=== PATIENT | male | born 1940 | race Caucasian/White ===

== ENCOUNTER 2022-12-16 16:29 | Inpatient (IN) | payer MEDICARE ==
[2022-12-16] MEDS ORDERED: ACETAMINOPHEN TAB 500 MG TAB PO STA (16:42)
[2022-12-16] MEDS ORDERED: SODIUM CHLORIDE 0.9% 1,000 ML IV STA (16:44)
--- NOTE | 2022-12-16 17:06 | ED ---
General Adult HPI - General Chief complaint: Back Pain/Injury Stated complaint: Kidney stones Time Seen by Provider: 12/16/22 16:39 Source: patient, EMS Mode of arrival: EMS Limitations: no limitations - History of Present Illness Initial comments: Dictation was produced using [employer]mob dictation software. please excuse any grammatical, word or spelling errors. Chief Complaint: 82-year-old male presents emergency department for intractable kidney stone pain History of Present Illness: Patient is an 82-year-old male who is transferred via EMS from [facility]. Patient apparently presented there for days ago for kidney stone pain. Patient is a poor historian. Suspect that he has a history of dementia. According to transferring physician patient presented therefore days ago for kidney stone. He was found to have a 8 mm left mid ureteral stone. He is discharged. They suspected he also had associated urinary tract infection. 3 presented to either emergency room today for the same complaint. Is not feeling like he is getting any better he was transferred here. Patient states that he has pain in the right abdomen. Patient states he is cold and can't get warm. The ROS documented in this emergency department record has been reviewed and confirmed by me. Those systems with pertinent positive or negative responses have been documented in the HPI. All other systems are other negative and/or noncontributory. - Related Data Allergies Allergy/AdvReac Type Severity Reaction Status Date / Time No Known Allergies Allergy Verified 12/16/22 16:41 Review of Systems ROS Statement: Those systems with pertinent positive or pertinent negative responses have been documented in the HPI. ROS Other: All systems not noted in ROS Statement are negative. Past Medical History History of Any Multi-Drug Resistant Organisms: None Reported Past Psychological History: No Psychological Hx Reported Smoking Status: Never smoker Past Alcohol Use History: Rare Past Drug Use History: None Reported General Exam - General Exam Comments Initial Comments: PHYSICAL EXAM: General Impression: Alert and oriented x3, not in acute distress HEENT: Normocephalic atraumatic, extra-ocular movements intact, pupils equal and reactive to light bilaterally, mucous membranes moist. Cardiovascular: Heart regular rate and rhythm Chest: Able to complete full sentences, no retractions, no tachypnea Abdomen: abdomen soft, non-tender, non-distended, no organomegaly Musculoskeletal: Pulses present and equal in all extremities, no peripheral edema Motor: no focal deficits noted Neurological: CN II-XII grossly intact, no focal motor or sensory deficits noted Skin: Intact with no visualized rashes Psych: Normal affect and mood Limitations: no limitations Course Vital Signs 12/16/22 12/16/22 16:38 16:44 Temperature 101.7 F H 101.7 F H Pulse Rate 115 H 109 H Respiratory 20 18 Rate Blood Pressure 166/87 166/87 O2 Sat by Pulse 91 L 92 L Oximetry - Reevaluation(s) Reevaluation #1: 12/16/22 17:[address] radiology reviewed shows that patient had 8 mm midureteral stone with moderate hydronephrosis. Urinalysis from transferring physician. Labs revealed showing elevated leukocytosis of 9.5. Rest of CBC within acceptable limits. Urinalysis is negative for urinary tract infection. Chemistry panel shows sodium 1:30, BUN 27 and creatinine 1.9 EKG Findings - EKG Comments: EKG Findings:: My EKG interpretation: Ventricular rate 92, sinus rhythm,. Interval to 22, QRS 106, QTC 408. No [place] prolongation, no QTC prolongation, no ST or T-wave changes noted. . Overall, this EKG is unremarkable Procedures - Sepsis Sepsis Focused Exam #1 Time Sepsis Criteria Met: 18:55 Sepsis Focused Exam Date: 12/16/22 Sepsis Focused Exam Time: 18:55 Sepsis Focused Exam Complete: Yes Vital Signs & RN Notes Reviewed: Yes Capillary Refill: < 2 Seconds: Fingers, Toes Peripheral Pulses: Normal: Radial (R), Radial (L), Posterior Tibialis (R), Posterior Tibialis (L), Dorsalis Pedis (R), Dorsalis Pedis (L) Skin Color: Normal for Patient Respiratory Exam: normal lung sounds Cardiovascular Exam: tachycardia Medical Decision Making - Medical Decision Making Was pt. sent in by a medical professional or institution (, PA, SNAPPER ON, urgent care, hospital, or correction...) When possible be specific @ -See above Did you speak to anyone other than the patient for history (EMS, parent, family, police, friend...)? What history was obtained from this source @ -See above Did you review nursing and triage notes (agree or disagree)? Why? @ -I reviewed and agree with nursing and triage notes Were old charts reviewed (outside hosp., previous admission, EMS record, old EKG, old radiological studies, urgent care reports/EKG's, correction records)? Report findings @ -No old charts were reviewed Differential Diagnosis (chest pain, altered mental status, abdominal pain women, abdominal pain men, vaginal bleeding, musculoskeletal, weakness, fever, dyspnea, syncope, headache, dizziness, GI bleed, back pain, seizure, CVA, palpatations, mental health)? @ -Differential Fever: Pneumonia, viral URI, endocarditis, myocarditis, pericarditis, otitis, sinusitis, peritonsillar Abscess, retropharyngeal Abscess, epiglottitis, peritonitis, appendicitis, Lilia cystitis, diverticulitis, hepatitis, colitis, UTI, PID, TOA, pyelonephritis, prostatitis, epididymitis, meningitis, encephalitis, pulmonary embolism, CVA, thyroid storm, pancreatitis, adrenal crisis, cavernous sinus thrombosis, this is not meant to be an all-inclusive list. EKG interpreted by me (3pts min.). @ -See above X-rays interpreted by me (1pt min.). @ -No lobar infiltrate seen on chest x-ray CT interpreted by me (1pt min.). @ -None done U/S interpreted by me (1pt. min.). @ -None done What testing was considered but not performed or refused? (CT, X-rays, U/S, lab s)? Why? @ -None What meds were considered but not given or refused? Why? @ -None Did you discuss the management of the patient with other professionals (professionals i.e. , PA, SNAPPER ON, lab, RT, psych nurse, dialysis social worker, dam worker, teacher, motor equipment commanding officer, window caser)? Give summary @ -Case discussed with hospitalist for admission Was smoking cessation discussed for >3mins.? @ -No Was critical care preformed (if so, how long)? @ -No Were there social determinants of health that impacted care today? How? ( Homelessness, low income, unemployed, alcoholism, drug addiction, transportation, low edu. Level, literacy, decrease access to med. care, snf, rehab)? @ -No Was there de-escalation of care discussed even if they declined (Discuss DNR or withdrawal of care, Hospice)? DNR status @ -No What co-morbidities impacted this encounter? (DM, HTN, Smoking, COPD, CAD, Cancer, CVA, ARF, Chemo, Hep., AIDS, mental health diagnosis, sleep apnea, morbid obesity)? @ -None Was patient admitted / discharged? Hospital course, mention meds given and route, prescriptions, significant lab abnormalities, going to OR and other pertinent info. @ -82-year-old male presents to the emergency department initially for nephrolithiasis. Apparently he presented to [facility] for multiple complaints. He denies any pain in his left flank. He states he has pain in his right abdomen. He had a computed tomography scan of the abdomen and pelvis at [facility] was found to be positive for mid ureteral nephrolithiasis with moderate hydronephrosis. Vital signs upon arrival shows temperature 101.7 heart rate of 1:15 O2 saturation of 91%. Given patient's mentation unclear what his b aseline is top of pyrexia and tachycardia there is concern for sepsis. Patient had already received IV fluids from previous hospital. No leukocytosis on CBC. Hyponatremia 129, creatinine of 2.06 with BUN of 27. Elevated troponin 072. Patient has no chest pain or shortness of breath. Urinalysis negative. COVID- 19 test negative. Chest x-ray shows no obvious findings to suggest pulmonary infection. Patient is not have any physical exam findings to suggest SCIENCE TEACHER infection. Clinical presentation consistent with systemic inflammatory response syndrome. Patient's are broad spectrum antibiotics. Will be admitted with consultation infectious disease. Undiagnosed new problem with uncertain prognosis? @ -No Drug Therapy requiring intensive monitoring for toxicity (Heparin, Nitro, Insulin, Cardizem)? @ -No Were any procedures done? @ -No Diagnosis/symptom? Acute, or Chronic, or Acute on Chronic? Uncomplicated (without systemic symptoms) or Complicated (systemic symptoms)? @ -SIRS. Side effects of treatment? @ -No Exacerbation, Progression, or Severe Exacerbation? @ -No Poses a threat to life or bodily function? How? (Chest pain, USA, IA, pneumonia, PE, COPD, DKA, ARF, appy, cholecystitis, CVA, Diverticulitis, Homicidal, Suicidal, threat to staff... and all critical care pts) @ -yes - Lab Data Result diagrams: 12/16/22 16:52 12/16/22 16:52 Lab Results 12/16/22 12/16/22 12/16/22 Range/Units 16:52 16:52 16:52 WBC 7.2 (3.8-10.6) k/uL RBC 4.65 (4.30-5.90) m/uL Hgb 15.1 (13.0-17.5) gm/dL Hct 43.0 (39.0-53.0) % MCV 92.5 (80.0-100.0) fL MCH 32.4 (25.0-35.0) pg MCHC 35.0 (31.0-37.0) g/dL RDW 13.1 (11.5-15.5) % Plt Count 94 L (150-450) k/uL MPV 7.5 Neutrophils % 91 % Lymphocytes % 5 % Monocytes % 2 % Eosinophils % 1 % Basophils % 0 % Neutrophils # 6.6 (1.3-7.7) k/uL Lymphocytes # 0.4 L (1.0-4.8) k/uL Monocytes # 0.1 (0-1.0) k/uL Eosinophils # 0.1 (0-0.7) k/uL Basophils # 0.0 (0-0.2) k/uL Sodium 129 L (137-145) mmol/L Potassium 4.0 (3.5-5.1) mmol/L Chloride 99 (98-107) mmol/L Carbon Dioxide 22 (22-30) mmol/L Anion Gap 8 mmol/L BUN 27 H (9-20) mg/dL Creatinine 2.06 H (0.66-1.25) mg/dL Est GFR (CKD-EPI)AfAm 34 (>60 ml/min/1.73 sqM) Est GFR (CKD-EPI)NonAf 29 (>60 ml/min/1.73 sqM) Glucose 99 (74-99) mg/dL Plasma Lactic Acid [place] 1.4 (0.7-2.0) mmol/L Calcium 8.2 L (8.4-10.2) mg/dL Troponin I (0.000-0.034) ng/mL Urine Color Urine Appearance (Clear) Urine pH (5.0-8.0) Ur Specific [place] (1.001-1.035) Urine Protein (Negative) Urine Glucose (UA) (Negative) Urine Ketones (Negative) Urine Blood (Negative) Urine Nitrite (Negative) Urine Bilirubin (Negative) Urine Urobilinogen (<2.0) mg/dL Ur Leukocyte Esterase (Negative) Coronavirus (PCR) (Not Detectd) 12/16/22 12/16/22 12/16/22 Range/Units 16:52 16:52 18:30 WBC (3.8-10.6) k/uL RBC (4.30-5.90) m/uL Hgb (13.0-17.5) gm/dL Hct (39.0-53.0) % MCV (80.0-100.0) fL MCH (25.0-35.0) pg MCHC (31.0-37.0) g/dL RDW (11.5-15.5) % Plt Count (150-450) k/uL MPV Neutrophils % % Lymphocytes % % Monocytes % % Eosinophils % % Basophils % % Neutrophils # (1.3-7.7) k/uL Lymphocytes # (1.0-4.8) k/uL Monocytes # (0-1.0) k/uL Eosinophils # (0-0.7) k/uL Basophils # (0-0.2) k/uL Sodium (137-145) mmol/L Potassium (3.5-5.1) mmol/L Chloride (98-107) mmol/L Carbon Dioxide (22-30) mmol/L Anion Gap mmol/L BUN (9-20) mg/dL Creatinine (0.66-1.25) mg/dL Est GFR (CKD-EPI)AfAm (>60 ml/min/1.73 sqM) Est GFR (CKD-EPI)NonAf (>60 ml/min/1.73 sqM) Glucose (74-99) mg/dL Plasma Lactic Acid [place] (0.7-2.0) mmol/L Calcium (8.4-10.2) mg/dL Troponin I 0.072 H* (0.000-0.034) ng/mL Urine Color Yellow Urine Appearance Clear (Clear) Urine pH 6.0 (5.0-8.0) Ur Specific [place] >1.050 H (1.001-1.035) Urine Protein Trace H (Negative) Urine Glucose (UA) Negative (Negative) Urine Ketones Negative (Negative) Urine Blood Negative (Negative) Urine Nitrite Negative (Negative) Urine Bilirubin Negative (Negative) Urine Urobilinogen <2.0 (<2.0) mg/dL Ur Leukocyte Esterase Negative (Negative) Coronavirus (PCR) Not Detected (Not Detectd) Disposition Clinical Impression: SIRS (systemic inflammatory response syndrome) Disposition: ADMITTED IP TO THIS HOSP Condition: Serious Referrals: None,Stated [Primary Care Provider] - 1-2 days Decision Time: 18:30
[2022-12-16 17:25] LABS: Basophils % (A) 0 %; Eosinophils # (A) 0.1 k/uL (0-0.7); Eosinophils % (A) 1 %; HGB 15.1 gm/dL (13.0-17.5); Lymphocytes # (A) 0.4 k/uL (1.0-4.8); Lymphocytes % (A) 5 %; MCH 32.4 pg (25.0-35.0); MCV 92.5 fL (80.0-100.0); Mean Platelet Volume 7.5; Monocytes # (A) 0.1 k/uL (0-1.0); Monocytes % (A) 2 %; Neutrophils # (A) 6.6 k/uL (1.3-7.7); Neutrophils % (A) 91 %; RBC 4.65 m/uL (4.30-5.90); RDW 13.1 % (11.5-15.5); WBC 7.2 k/uL (3.8-10.6)
[2022-12-16 17:35] LABS: African American GFR (CKD) 34 (>60 ml/min/1.73 sqM); Anion Gap 8 mmol/L; Blood Urea Nitrogen 27 mg/dL (9-20); Calcium 8.2 mg/dL (8.4-10.2); Carbon Dioxide 22 mmol/L (22-30); Chloride 99 mmol/L (98-107); Glucose 99 mg/dL (74-99); Non-African American GFR(CKD) 29 (>60 ml/min/1.73 sqM); Sodium 129 mmol/L (137-145)
[2022-12-16 17:38] LABS: Platelet Count 94 k/uL (150-450)
--- NOTE | 2022-12-16 17:55 | XR ---
EXAMINATION TYPE: XR chest 2V DATE OF EXAM: 12/16/2022 COMPARISON: None HISTORY: 82-year-old male with fever TECHNIQUE: AP and lateral views FINDINGS: Low lung volumes and cardiovascular markings. Heart mildly enlarged. Median sternotomy wires and post -CABG clips. Ouncy-os-dicvjqjg left pleural effusion with adjacent left basilar opacity. Interstitial prominence. IMPRESSION: Hypoventilatory changes limiting the exam. There appears to be a [id number] left effusion with adjacent atelectasis and/or consolidation. Correlate for possible sequela of CHF.
[2022-12-16] MEDS ORDERED: PIPERACILLIN-TAZOBACTAM 3.375 GM in SODIUM CHLORIDE 0.9% 100 ML IVPB STA (18:13)
[2022-12-16] MEDS ORDERED: VANCOMYCIN IV PER PHARMACY 1 EACH MISC MISCELLANE PRN (18:13)
[2022-12-16 18:43] LABS: Appearance,Urine Clear (Clear); Bilirubin,Urine Negative (Negative); Blood,Urine Negative (Negative); Color,Urine Yellow; Glucose,Urine (UA) Negative (Negative); Ketones,Urine Negative (Negative); Leukocyte Esterase,Urine Negative (Negative); Nitrite,Urine Negative (Negative); Protein,Urine Trace (Negative); Urobilinogen,Urine <2.0 mg/dL (<2.0)
[2022-12-16 18:45] LABS: Specific Gravity,Urine >1.050 (1.001-1.035)
[2022-12-16] MEDS ORDERED: VANCOMYCIN 1,500 MG in SODIUM CHLORIDE 0.9% 500 ML 500 ML IVPB ONE (18:45)
[2022-12-16] MEDS ORDERED: NALOXONE 0.4 MG/ML 1 ML VIAL IV PRN (18:49)
[2022-12-16] MEDS: SODIUM CHLORIDE 0.9% 1,000 ML IV SCH (22:37)
[2022-12-17] MEDS: ONDANSETRON 4 MG/2 ML VIAL IVP PRN (06:05)
[2022-12-17 08:42] LABS: African American GFR (CKD) 31 (>60 ml/min/1.73 sqM); Non-African American GFR(CKD) 27 (>60 ml/min/1.73 sqM)
[2022-12-17] MEDS ORDERED: HYDROmorphone 0.5 MG/0.5 ML SYRINGE IVP PRN (12:24)
[2022-12-17] MEDS ORDERED: ETODOLAC 400 MG TAB PO PRN (12:52)
[2022-12-17] MEDS ORDERED: ALBUTEROL HFA INHALER INHALATION PRN (12:52)
[2022-12-17] MEDS: FINASTERIDE 5 MG TAB PO SCH (16:15)
[2022-12-17] MEDS: SODIUM CHLORIDE 0.9% 1,000 ML IV SCH ×2 (16:17→22:29)
[2022-12-17] MEDS ORDERED: VANCOMYCIN 1,500 MG in SODIUM CHLORIDE 0.9% 500 ML 500 ML IVPB SCH (18:00)
[2022-12-17] MEDS: HYDROcodone/APAP 5-325MG 1 EACH TAB PO PRN (21:15)
[2022-12-17] MEDS: DOXAZOSIN 4 MG TAB PO SCH (21:15)
--- NOTE | 2022-12-17 22:22 | P.CONS ---
History of Present Illness - Reason for Consult Consult date: 12/17/22 - History of Present Illness Patient is a 82-year-old male with a past medical history significant for kidney stone hypertension hyperlipidemia apparently was recently evaluated and monitored hospital the patient has been diagnosed with a kidney stone apparently the patient did have a 8 mm left medial ureteral stone and the patient also suspected with a UTI patient was subsequent discharged home however the patient presented to hospital with worsening pain to the left flank he describes the pain to be sharp 7- 8 out of 10 no radiation some nausea but no vomiting no diarrhea patient on presentation to the hospital did have a fever of 101.7 degrees forearm height patient was not tachycardic hypotensive or hypoxic patient did have a normal white count with leukopenia BUN/creatinine has been mildly elevated troponins were elevated urine was negative COVID testing was negative patient did have a chest x-ray hypoventilatory changes small to moderate left effusion patient was started on vancomycin he did receive a dose of Zosyn in the ER infectious was consulted for further management of antibiotic therapy Past Medical History History of Any Multi-Drug Resistant Organisms: None Reported Past Anesthesia/Blood Transfusion Reactions: No Reported Reaction Past Psychological History: No Psychological Hx Reported Smoking Status: Never smoker Past Alcohol Use History: Rare Past Drug Use History: None Reported Medications and Allergies Home Medications Medication Instructions Recorded Confirmed Type Albuterol Inhaler [Ventolin Hfa 2 puff INHALATION RT-Q4H PRN 12/16/22 12/16/22 History Inhaler] Atorvastatin [Lipitor] 40 mg PO DAILY 12/16/22 12/16/22 History Diclofenac Sodium [Voltaren] 75 mg PO BID PRN 12/16/22 12/16/22 History Doxazosin [Cardura] 4 mg PO HS 12/16/22 12/16/22 History Ezetimibe [Zetia] 10 mg PO DAILY 12/16/22 12/16/22 History Finasteride [Proscar] 5 mg PO DAILY 12/16/22 12/16/22 History HYDROcodone/APAP 5-325MG [[place] 1 tab PO QID PRN 12/16/22 12/16/22 History 5-325] Losartan/Hydrochlorothiazide 1 tab PO DAILY 12/16/22 12/16/22 History [Losartan-Hctz 100-25 mg Tab] Naproxen [Naprosyn] 500 mg PO BID PRN 12/16/22 12/16/22 History Allergies Allergy/AdvReac Type Severity Reaction Status Date / Time No Known Allergies Allergy Verified 12/16/22 19:24 Physical Exam Vitals: Vital Signs Temp Pulse Pulse Resp BP BP Pulse Ox 12/17/22 09:25 18 12/17/22 09:24 97.6 F 73 18 122/68 94 L 12/17/22 07:57 94 L 12/17/22 04:00 98.8 F 71 18 122/62 95 12/17/22 00:00 98.8 F 69 18 111/55 92 L 12/16/22 19:00 86 18 130/72 96 12/16/22 18:57 100.4 F H 83 18 138/82 93 L 12/16/22 18:00 105 H 17 123/77 12/16/22 17:00 166/87 96 12/16/22 16:45 166/87 94 L 12/16/22 16:44 101.7 F H 109 H 18 166/87 92 L 12/16/22 16:38 101.7 F H 115 H 20 166/87 91 L Intake and Output 12/16/22 12/17/22 12/17/22 22:59 06:59 14:59 Intake Total 840 360 Output Total 250 475 200 Balance -250 365 160 Intake: Intake, IV Titration 600 Amount Sodium Chloride 0.9% 1, 600 000 ml @ 75 mls/hr IV . [id number] [facility] Rx#:[id number] Oral 240 360 Output: Urine 250 475 200 Other: Voiding Method Urinal Weight 99.79 kg Results CBC & Chem 7: 12/16/22 16:52 12/17/22 07:44 Labs: Abnormal Lab Results - Last 24 Hours (Table) 12/16/22 12/16/22 12/16/22 Range/Units 16:52 16:52 16:52 Plt Count 94 L (150-450) k/uL Lymphocytes # 0.4 L (1.0-4.8) k/uL Sodium 129 L (137-145) mmol/L BUN 27 H (9-20) mg/dL Creatinine 2.06 H (0.66-1.25) mg/dL Calcium 8.2 L (8.4-10.2) mg/dL Troponin I 0.072 H* (0.000-0.034) ng/mL Ur Specific [place] (1.001-1.035) Urine Protein (Negative) 12/16/22 12/17/22 Range/Units 18:30 07:44 Plt Count (150-450) k/uL Lymphocytes # (1.0-4.8) k/uL Sodium (137-145) mmol/L BUN (9-20) mg/dL Creatinine 2.22 H (0.66-1.25) mg/dL Calcium (8.4-10.2) mg/dL Troponin I (0.000-0.034) ng/mL Ur Specific [place] >1.050 H (1.001-1.035) Urine Protein Trace H (Negative) Assessment and Plan Plan: 1patient presented hospital with left flank pain and did have a fever in this patient with recent diagnosis of left ureteral stone and hydronephrosis and likely secondary left-sided pyelonephritis patient did have some left-sided effusion however did not have significant respiratory symptoms to be suggestive of pneumonia. 2patient with an insufficiency high risk of nephrotoxicity from vancomycin 3-discontinue vancomycin 4-start the patient Rocephin 2 g daily 5-await urology evaluation and cystoscopy and possible ureteral stent placement we will repeat a UA afterwards We will follow on clinical condition and cultures to further adjust medication if needed Thank you for this consultation we will follow the patient along with you Dictation was produced using [employer] dictation software. please excuse any grammatical, word or spelling errors. Time with Patient: Greater than 30
[2022-12-18] MEDS: HYDROcodone/APAP 5-325MG 1 EACH TAB PO PRN (01:56)
[2022-12-18] MEDS: ATORVASTATIN 40 MG TAB PO SCH (08:20)
[2022-12-18] MEDS: FINASTERIDE 5 MG TAB PO SCH (08:20)
[2022-12-18 08:25] LABS: African American GFR (CKD) 31 (>60 ml/min/1.73 sqM); Non-African American GFR(CKD) 26 (>60 ml/min/1.73 sqM)
[2022-12-18] MEDS: ONDANSETRON 4 MG/2 ML VIAL IVP PRN (09:52)
--- NOTE | 2022-12-18 10:14 | P.GSCN ---
History of Present Illness Consult date: 12/18/22 Reason for Consult: Left ureteral calculus Requesting physician: Ariel Moran History of present illness: The patient recently presented to [facility] with left flank pain. CT scan showed an 8 mm left mid-ureteral calculus. He was transferred to [facility] for further management. The patient believes he had a fever 1 week ago. He is a vague historian. He states that he has passed over 20 kidney stones in his lifetime. He has never required surgery for kidney stones. He believes he was treated for a UTI in the remote past. Review of Systems - Constitutional Reports fever - Genitourinary Reports flank pain, Reports kidney stones, Denies dysuria, Denies hematuria Past Medical History History of Any Multi-Drug Resistant Organisms: None Reported Past Anesthesia/Blood Transfusion Reactions: No Reported Reaction Past Psychological History: No Psychological Hx Reported Smoking Status: Never smoker Past Alcohol Use History: Rare Past Drug Use History: None Reported Medications and Allergies Home Medications Medication Instructions Recorded Confirmed Type Albuterol Inhaler [Ventolin Hfa 2 puff INHALATION RT-Q4H PRN 12/16/22 12/16/22 History Inhaler] Atorvastatin [Lipitor] 40 mg PO DAILY 12/16/22 12/16/22 History Diclofenac Sodium [Voltaren] 75 mg PO BID PRN 12/16/22 12/16/22 History Doxazosin [Cardura] 4 mg PO HS 12/16/22 12/16/22 History Ezetimibe [Zetia] 10 mg PO DAILY 12/16/22 12/16/22 History Finasteride [Proscar] 5 mg PO DAILY 12/16/22 12/16/22 History HYDROcodone/APAP 5-325MG [[place] 1 tab PO QID PRN 12/16/22 12/16/22 History 5-325] Losartan/Hydrochlorothiazide 1 tab PO DAILY 12/16/22 12/16/22 History [Losartan-Hctz 100-25 mg Tab] Naproxen [Naprosyn] 500 mg PO BID PRN 12/16/22 12/16/22 History Allergies Allergy/AdvReac Type Severity Reaction Status Date / Time No Known Allergies Allergy Verified 12/16/22 19:24 Surgical - Exam Vital Signs Temp Pulse Resp BP Pulse Ox 101.7 F H 115 H 20 166/87 91 L 12/16/22 16:38 12/16/22 16:38 12/16/22 16:38 12/16/22 16:38 12/16/22 16:38 - General well developed, well nourished, no distress - Neck no masses, trachea midline - Respiratory normal respiratory effort - Abdomen Abdomen: soft, non tender, no guarding, no rigid, no rebound - Genitourinary normal penis with no external lesions, testicles non-tender - Neurologic no disoriented, no combative Results - Labs 12/16/22 16:52 12/18/22 07:21 Abnormal Lab Results - Last 24 Hours (Table) 12/17/22 12/17/22 Range/Units 07:44 12:42 Creatinine 2.22 H (0.66-1.25) mg/dL Troponin I 0.063 H* (0.000-0.034) ng/mL Microbiology - Last 24 Hours (Table) 12/16/22 16:52 Blood Culture - Preliminary Blood Diabetes panel 12/17/22 Range/Units 07:44 Creatinine 2.22 H (0.66-1.25) mg/dL Pituitary panel 12/17/22 Range/Units 07:44 Creatinine 2.22 H (0.66-1.25) mg/dL Adrenal panel 12/17/22 Range/Units 07:44 Creatinine 2.22 H (0.66-1.25) mg/dL - Imaging CT scan - abdomen: report reviewed, image reviewed Assessment and Plan Assessment: I have reviewed the patient's CT scan images, which show evidence of left hydroureteronephrosis due to an 8 mm left distal ureteral calculus, approximately 2 cm proximal to the ureterovesical junction. (1) Calculus of ureter Current Visit: Yes Status: Acute Code(s): N20.1 - [facility] ED Code(s): 31546365 Plan: Urinalysis here at [facility] was unremarkable. However, the patient does give a vague history of recent fever, and information provided for [facility] at the time of transfer suggested a concern of infection. In view of this, Mr. Robertson is receiving broad-spectrum antibiotics, and I have suggested he undergo cystoscopy with left ureteral stent insertion tomorrow. This will relieve obstruction and avoid the risk of stone manipulation in the face of infection. He was advised of potential risks, which include anesthesia, inability to successfully place a stent, and ureteral injury. Arrangements will then be made for him to undergo a secondary elective procedure for removal of the stent and left distal ureteral calculus. Time with Patient: Greater than 30
[2022-12-18] MEDS: SODIUM CHLORIDE 0.9% 1,000 ML IV SCH (11:47)
--- NOTE | 2022-12-18 11:49 | P.HPIM ---
History of Present Illness H&P Date: 12/17/22 Chief Complaint: Back pain/injury 82-year-old male who is transferred via EMS from [facility], past medical history significant for kidney stone hypertension hyperlipidemia apparently was recently evaluated and monitored hospital the patient has been diagnosed with a kidney stone apparently the patient did have a 8 mm left medial ureteral stone and the patient also suspected with a UTI patient was subsequent discharged home however the patient presented to hospital with worsening pain to the left flank he describes the pain to be sharp 7- 8 out of 10 no radiation some nausea but no vomiting no diarrhea patient on presentation to the hospital did have a fever of 101.7 degrees forearm height patient was not tachycardic hypotensive or hypoxic patient did have a normal white count with leukopenia BUN/creatinine has been mildly elevated troponins were elevated urine was negative COVID testing was negative patient did have a chest x-ray hypoventilatory changes small to moderate left effusion patient was started on vancomycin he did receive a dose of Zosyn Review of Systems REVIEW OF SYSTEMS: CONSTITUTIONAL: No fever, no malaise, no fatigue. HEENT: No recent visual problems or hearing problems. Denied any sore throat. CARDIOVASCULAR: No chest pain, orthopnea, PND, no palpitations, no syncope. PULMONARY: No shortness of breath, no cough, no hemoptysis. GASTROINTESTINAL: No diarrhea, no nausea, no vomiting, no abdominal pain. NEUROLOGICAL: No headaches, no weakness, no numbness. HEMATOLOGICAL: Denies any bleeding or petechiae. GENITOURINARY: Denies any burning micturition, frequency, or urgency. MUSCULOSKELETAL/RHEUMATOLOGICAL: Denies any joint pain, swelling, or any muscle pain. ENDOCRINE: Denies any polyuria or polydipsia. The rest of the 14-point review of systems is negative. Past Medical History History of Any Multi-Drug Resistant Organisms: None Reported Past Anesthesia/Blood Transfusion Reactions: No Reported Reaction Past Psychological History: No Psychological Hx Reported Smoking Status: Never smoker Past Alcohol Use History: Rare Past Drug Use History: None Reported Medications and Allergies Home Medications Medication Instructions Recorded Confirmed Type Albuterol Inhaler [Ventolin Hfa 2 puff INHALATION RT-Q4H PRN 12/16/22 12/16/22 History Inhaler] Atorvastatin [Lipitor] 40 mg PO DAILY 12/16/22 12/16/22 History Diclofenac Sodium [Voltaren] 75 mg PO BID PRN 12/16/22 12/16/22 History Doxazosin [Cardura] 4 mg PO HS 12/16/22 12/16/22 History Ezetimibe [Zetia] 10 mg PO DAILY 12/16/22 12/16/22 History Finasteride [Proscar] 5 mg PO DAILY 12/16/22 12/16/22 History HYDROcodone/APAP 5-325MG [[place] 1 tab PO QID PRN 12/16/22 12/16/22 History 5-325] Losartan/Hydrochlorothiazide 1 tab PO DAILY 12/16/22 12/16/22 History [Losartan-Hctz 100-25 mg Tab] Naproxen [Naprosyn] 500 mg PO BID PRN 12/16/22 12/16/22 History Allergies Allergy/AdvReac Type Severity Reaction Status Date / Time No Known Allergies Allergy Verified 12/16/22 19:24 Physical Exam Vitals: Vital Signs Temp Pulse Pulse Resp BP BP Pulse Ox 12/17/22 09:25 18 12/17/22 09:24 97.6 F 73 18 122/68 94 L 12/17/22 07:57 94 L 12/17/22 04:00 98.8 F 71 18 122/62 95 12/17/22 00:00 98.8 F 69 18 111/55 92 L 12/16/22 19:00 86 18 130/72 96 12/16/22 18:57 100.4 F H 83 18 138/82 93 L 12/16/22 18:00 105 H 17 123/77 12/16/22 17:00 166/87 96 12/16/22 16:45 166/87 94 L 12/16/22 16:44 101.7 F H 109 H 18 166/87 92 L 12/16/22 16:38 101.7 F H 115 H 20 166/87 91 L Intake and Output 12/16/22 12/17/22 12/17/22 22:59 06:59 14:59 Intake Total 840 360 Output Total 250 475 200 Balance -250 365 160 Intake: Intake, IV Titration 600 Amount Sodium Chloride 0.9% 1, 600 000 ml @ 75 mls/hr IV . [id number] [facility] Rx#:[id number] Oral 240 360 Output: Urine 250 475 200 Other: Voiding Method Urinal Weight 99.79 kg General Impression: Alert and oriented x3, not in acute distress HEENT: Normocephalic atraumatic, extra-ocular movements intact, pupils equal and reactive to light bilaterally, mucous membranes moist. Cardiovascular: Heart regular rate and rhythm Chest: Able to complete full sentences, no retractions, no tachypnea Abdomen: abdomen soft, non-tender, non-distended, no organomegaly Musculoskeletal: Pulses present and equal in all extremities, no peripheral edema Motor: no focal deficits noted Neurological: CN II-XII grossly intact, no focal motor or sensory deficits noted Skin: Intact with no visualized rashes Psych: Normal affect and mood Results CBC & Chem 7: 12/16/22 16:52 12/18/22 07:21 Labs: Abnormal Lab Results - Last 24 Hours (Table) 12/16/22 12/16/22 12/16/22 Range/Units 16:52 16:52 16:52 Plt Count 94 L (150-450) k/uL Lymphocytes # 0.4 L (1.0-4.8) k/uL Sodium 129 L (137-145) mmol/L BUN 27 H (9-20) mg/dL Creatinine 2.06 H (0.66-1.25) mg/dL Calcium 8.2 L (8.4-10.2) mg/dL Troponin I 0.072 H* (0.000-0.034) ng/mL Ur Specific [place] (1.001-1.035) Urine Protein (Negative) 12/16/22 12/17/22 Range/Units 18:30 07:44 Plt Count (150-450) k/uL Lymphocytes # (1.0-4.8) k/uL Sodium (137-145) mmol/L BUN (9-20) mg/dL Creatinine 2.22 H (0.66-1.25) mg/dL Calcium (8.4-10.2) mg/dL Troponin I (0.000-0.034) ng/mL Ur Specific [place] >1.050 H (1.001-1.035) Urine Protein Trace H (Negative) Thrombosis Risk Factor Assmnt - Choose All That Apply Each Factor Represents 1 point: Sepsis (< 1month) Each Risk Factor Represents 3 Points: Age 75 years or older Thrombosis Risk Factor Assessment Total Risk Factor Score: 4 Thrombosis Risk Factor Assessment Level: Moderate Risk Assessment and Plan Assessment: 1. SIRS/sepsis; patient presents with tachycardia, tachypnea and a fever of 101.7; likely SIRS versus sepsis; white blood count remains within normal range 2. Left-sided pyelonephritis; patient received IV Zosyn and vancomycin in ED; blood cultures and urine culture is down with further recommendations once culture results are available; IDs consulted 3. Left-sided pleural effusion; possible pneumonia; patient has been placed on IV antibiotics; await ID recommendations 4. Left ureteral stone/hydronephrosis; imaging reveals an 8 mm stone in the left ureter with moderate hydronephrosis; consult urology 5. Worsening acute renal injury/likely obstructive uropathy; we will start patient on slow IV fluid hydration; monitor strict KIMBERLEY's and daily weights; monitor renal function and electrolytes; avoid nephrotoxins; consult urology for further recommendations on ureteral stone and hydronephrosis 6. Elevated troponin; EKG does not reveal any changes; we will trend troponin and order 2-D echo; consult cardiology pending results of workup 7. Hyponatremia; sodium 129 on presentation to ED; patient has been placed on IV fluids in form of normal saline; we will monitor electrolytes closely 7. Hypertension; losartan/hydrochlorothiazide 40148 one tablet daily; Cardura 4 mg daily at bedtime 8. Hyperlipidemia; Lipitor 40 mg daily; Zetia 10 mg daily 9. Asthma; not in exacerbation; Ventolin inhaler 2 puffs 4 times a day when necessary 10. BPH; Proscar 5 mg daily DVT prophylaxis; SCDs CODE STATUS; full code
[2022-12-18 13:14] LABS: Basophils % (A) 0 %; Eosinophils # (A) 0.2 k/uL (0-0.7); Eosinophils % (A) 2 %; HCT 36.3 % (39.0-53.0); HGB 12.6 gm/dL (13.0-17.5); Lymphocytes # (A) 0.8 k/uL (1.0-4.8); Lymphocytes % (A) 9 %; MCH 32.8 pg (25.0-35.0); MCHC 34.8 g/dL (31.0-37.0); MCV 94.4 fL (80.0-100.0); Monocytes # (A) 0.6 k/uL (0-1.0); Monocytes % (A) 7 %; Neutrophils # (A) 7.2 k/uL (1.3-7.7); Neutrophils % (A) 80 %; Platelet Count 125 k/uL (150-450); RBC 3.85 m/uL (4.30-5.90); RDW 13.3 % (11.5-15.5)
[2022-12-18 13:32] LABS: Anion Gap 7 mmol/L; Blood Urea Nitrogen 25 mg/dL (9-20); Calcium 7.7 mg/dL (8.4-10.2); Carbon Dioxide 24 mmol/L (22-30); Chloride 100 mmol/L (98-107); Glucose 87 mg/dL (74-99); Sodium 131 mmol/L (137-145)
[2022-12-18] MEDS ORDERED: HEPARIN SODIUM 1,000 UN/ML (10ML VL) IV ONE (16:13)
[2022-12-18] MEDS ORDERED: HEPARIN SODIUM 1,000 UN/ML (10ML VL) IV PRN (16:13)
[2022-12-18] MEDS ORDERED: HEPARIN SOD,PORK IN 0.45% NACL 25,000 UNIT in 0.45% NACL 1 250ML.BAG IV SCH (16:15)
[2022-12-18 17:33] LABS: Basophils % (A) 0 %; Eosinophils # (A) 0.2 k/uL (0-0.7); Eosinophils % (A) 3 %; HCT 37.6 % (39.0-53.0); HGB 13.1 gm/dL (13.0-17.5); Lymphocytes # (A) 0.8 k/uL (1.0-4.8); Lymphocytes % (A) 10 %; MCH 32.9 pg (25.0-35.0); MCV 94.2 fL (80.0-100.0); Monocytes # (A) 0.5 k/uL (0-1.0); Monocytes % (A) 7 %; Neutrophils # (A) 5.8 k/uL (1.3-7.7); Neutrophils % (A) 77 %; Platelet Count 137 k/uL (150-450); RBC 3.99 m/uL (4.30-5.90); RDW 13.1 % (11.5-15.5); WBC 7.6 k/uL (3.8-10.6)
[2022-12-18 17:51] LABS: Partial Thromboplastin Time 26.8 sec (22.0-30.0); Prothrombin Time 10.8 sec (9.0-12.0)
[2022-12-18] MEDS: DOXAZOSIN 4 MG TAB PO SCH (19:56)
--- NOTE | 2022-12-18 23:27 | XR ---
EXAMINATION TYPE: XR KUB DATE OF EXAM: 12/18/2022 COMPARISON: None INDICATION: Left ureteral calculus TECHNIQUE: Single view abdomen supine view FINDINGS: There is a normal bowel gas pattern. Psoas margins are normal. No organomegaly is present. There is a 1.8 cm calcification right upper quadrant may be a gallstone. There is a large irregular c alcification measuring 2.9 cm and the left renal region likely is a large calcification IMPRESSION: 1. Left renal calcification. 2. Cholelithiasis
[2022-12-19] MEDS: SODIUM CHLORIDE 0.9% 1,000 ML IV SCH ×2 (06:27→19:36)
[2022-12-19] MEDS: ATORVASTATIN 40 MG TAB PO SCH (08:31)
[2022-12-19] MEDS: FINASTERIDE 5 MG TAB PO SCH (08:32)
--- NOTE | 2022-12-19 09:02 | P.PN ---
Subjective Progress Note Date: 12/19/22 Principal diagnosis: Left ureteral calculus The patient was scheduled to undergo cystoscopy with left ureteral stent insertion this morning. However, his Troponin I level was elevated, so the procedure was canceled. He currently denies flank pain, as well as chest pain. Objective - Vital Signs Vital signs: Vital Signs Temp 99.0 F 12/19/22 04:00 Pulse 69 12/19/22 04:00 Resp 18 12/19/22 04:00 BP 159/87 12/19/22 04:00 Pulse Ox 93 L 12/19/22 04:00 FiO2 Intake & Output 12/18/22 12/18/22 12/19/22 06:59 18:59 06:59 Intake Total 240 540 82.817 Output Total 900 400 850 Balance -660 140 -767.183 Weight 101.3 kg Intake: Intake, IV Titration 82.817 Amount Heparin Sod,Pork in 0.45% 82.817 NaCl 25,000 unit In 0.45 % NaCl 1 250ml.bag @ 9.87 UNITS/KG/HR 9.998 mls/hr IV .Q24H [facility] Rx#: [id number] Oral 240 540 Output: Urine 900 400 850 Other: Voiding Method Urinal Urinal - Constitutional General appearance: Present: average body habitus, cooperative, no acute distress - Gastrointestinal Gastrointestinal Comment(s): Soft, non-tender, non-distended. - Psychiatric Psychiatric: Present: A&O x's 3 - Labs CBC & Chem 7: 12/18/22 17:19 12/18/22 07:21 Labs: Abnormal Lab Results - Last 24 Hours (Table) 12/18/22 12/18/22 12/18/22 Range/Units 07:21 07:21 14:33 RBC 3.85 L (4.30-5.90) m/uL Hgb 12.6 L (13.0-17.5) gm/dL Hct 36.3 L (39.0-53.0) % Plt Count 125 L (150-450) k/uL Lymphocytes # 0.8 L (1.0-4.8) k/uL APTT (22.0-30.0) sec Sodium 131 L (137-145) mmol/L BUN 25 H (9-20) mg/dL Creatinine 2.24 H (0.66-1.25) mg/dL Calcium 7.7 L (8.4-10.2) mg/dL Troponin I 0.228 H* (0.000-0.034) ng/mL 12/18/22 12/19/22 Range/Units 17:19 00:09 RBC 3.99 L (4.30-5.90) m/uL Hgb (13.0-17.5) gm/dL Hct 37.6 L (39.0-53.0) % Plt Count 137 L (150-450) k/uL Lymphocytes # 0.8 L (1.0-4.8) k/uL APTT 32.2 H (22.0-30.0) sec Sodium (137-145) mmol/L BUN (9-20) mg/dL Creatinine (0.66-1.25) mg/dL Calcium (8.4-10.2) mg/dL Troponin I (0.000-0.034) ng/mL Microbiology - Last 24 Hours (Table) 12/16/22 16:52 Blood Culture - Preliminary Blood Assessment and Plan Assessment: I have reviewed the patient's CT scan images, which show evidence of left hydroureteronephrosis due to an 8 mm left distal ureteral calculus, approximately 2 cm proximal to the ureterovesical junction. Although there was concern of infection at the time of the patient's transfer to [facility], he has been afebrile since he arrived and his WBC count has been normal. (1) Calculus of ureter Current Visit: Yes Status: Acute Code(s): N20.1 - CALCULUS OF URETER SNOMED Code(s): 13736632 Plan: Await cardiology evaluation. If he is cleared for surgery, it makes more sense at this point to perform ureteroscopy with laser lithotripsy and stent placement to remove the calculus.
--- NOTE | 2022-12-19 09:22 | P.CRDCN ---
History of Present Illness Consult date: 12/19/22 History of present illness: History of present illness: This is an 82-year-old male previously seen by Dr. Pérez subsequently by Dr. Cai last seen in the office on 06/16/2021 with past medical history of coronary artery disease status post 2 vessel bypass at [facility] in [place] after an myocardial infarction in 1987, hypertension, hyperlipidemia, stroke, carotid artery stenosis. Patient presented to [facility] due to left flank pain. CAT scan showed a ureteral calculus the patient was transferred to [facility] for intervention by urology. Patient was scheduled for cystoscopy this morning but troponins were ordered over the past 3 days which came back elevated and thus this consult was generated. Patient has been started on heparin drip and surgery has been held until cleared by cardiology. Patient denies having any chest pain, shortness of breath. He denies any dyspnea on exertion. He denies any chest pain with exertion. EKG sinus rhythm with first-degree block Chest x-ray: Hypoventilatory changes. Appears to be small to moderate left effusion with adjacent atelectasis and/or consolidation. Troponin 0.072, 0.063, 0.2-8 obtained over 3 days. BUN 25 creatinine 2.24. WBC 7.6, hemoglobin 13.1, platelet count 137. Home cardiac medications: Atorvastatin 40 mg daily, Zetia 10 mg daily, losartan/ 100 chlorothiazide 80243 one daily, Proscar 5 mg daily, Cardura 4 mg at bedtime Review Of Systems: At the time of my evaluation: Constitutional: No fever, no chills. No weakness, fatigue or lethargy. EENT: No headache. No dizziness. Lungs: No shortness of breath, cough, no sputum production. No wheezing. Cardiovascular: No chest pain, no lower extremity edema. No palpitations. No paroxysmal nocturnal dyspnea. No orthopnea. No lightheadedness or dizziness. No syncopal episodes. Genitourinary: Left flank pain Musculoskeletal: No myalgias. No muscle weakness, no frequent falls. Integumentary: No wounds. No rash. Neurologic: No aphasia. No facial droop. No change in mentation. No head injury. No headache. Physical examination: Gen: This is an 82-year-old male, resting in bed. No acute distress. VS: reviewed HEENT: Head is atraumatic, normocephalic. Pupils equal, round. Sclerae is anicteric. NECK: Supple. No JVD. . LUNGS: Clear to auscultation. No wheezes or rhonchi. No intercostal retractions. HEART: Regular rate and rhythm. Systolic murmur. ABDOMEN: Soft EXTREMITIES: No pedal edema. Left hydronephrosis secondary to distal ureteral calculus NEUROLOGICAL: Patient is awake, alert and oriented x3. Assessment: Left hydronephrosis due to left distal ureteral calculus Elevated troponin most likely due to elevated creatinine Acute kidney injury secondary to obstruction History of coronary artery disease with 2 vessel bypass Hypertension Hyperlipidemia History of CVA Carotid artery stenosis Plan: Discontinue heparin drip Obtain STAT 2-D echocardiogram and Doppler study which has been reviewed by Dr. Kaitlyn Baeza with mild to moderate aortic stenosis and preserved LVH. Patient is at acceptable risk for surgical intervention and may proceed as planned today. Further recommendations to follow based upon clinical course Thank you kindly for this consultation. Nurse practitioner note has been reviewed, I agree with documented findings and plan of care. Patient was seen and examined. Past Medical History History of Any Multi-Drug Resistant Organisms: None Reported Past Anesthesia/Blood Transfusion Reactions: No Reported Reaction Past Psychological History: No Psychological Hx Reported Smoking Status: Never smoker Past Alcohol Use History: Rare Past Drug Use History: None Reported Medications and Allergies Home Medications Medication Instructions Recorded Confirmed Type Albuterol Inhaler [Ventolin Hfa 2 puff INHALATION RT-Q4H PRN 12/16/22 12/16/22 History Inhaler] Atorvastatin [Lipitor] 40 mg PO DAILY 12/16/22 12/16/22 History Diclofenac Sodium [Voltaren] 75 mg PO BID PRN 12/16/22 12/16/22 History Doxazosin [Cardura] 4 mg PO HS 12/16/22 12/16/22 History Ezetimibe [Zetia] 10 mg PO DAILY 12/16/22 12/16/22 History Finasteride [Proscar] 5 mg PO DAILY 12/16/22 12/16/22 History HYDROcodone/APAP 5-325MG [[place] 1 tab PO QID PRN 12/16/22 12/16/22 History 5-325] Losartan/Hydrochlorothiazide 1 tab PO DAILY 12/16/22 12/16/22 History [Losartan-Hctz 100-25 mg Tab] Naproxen [Naprosyn] 500 mg PO BID PRN 12/16/22 12/16/22 History Allergies Allergy/AdvReac Type Severity Reaction Status Date / Time No Known Allergies Allergy Verified 12/16/22 19:24 Physical Exam Vitals: Vital Signs Temp Pulse Resp BP Pulse Ox 12/19/22 04:00 99.0 F 69 18 159/87 93 L 12/19/22 02:00 65 16 12/18/22 23:14 65 12/18/22 20:00 65 16 12/18/22 19:52 98.5 F 75 16 154/73 93 L 12/18/22 16:00 98.0 F 80 18 152/71 92 L 12/18/22 14:00 68 18 12/18/22 12:00 68 18 139/73 92 L Intake and Output 12/18/22 12/19/22 12/19/22 22:59 06:59 14:59 Intake Total 540 82.817 Output Total 100 750 Balance 440 -667.183 Intake: Intake, IV Titration 82.817 Amount Heparin Sod,Pork in 0.45% 82.817 NaCl 25,000 unit In 0.45 % NaCl 1 250ml.bag @ 9.87 UNITS/KG/HR 9.998 mls/hr IV .Q24H [facility] Rx#: [id number] Oral 540 Output: Urine 100 750 Other: Voiding Method Urinal Urinal Weight 100.5 kg Results 12/19/22 11:33 12/18/22 07:21 Cardiac Enzymes 12/18/22 Range/Units 14:33 Troponin I 0.228 H* (0.000-0.034) ng/mL Coagulation 12/18/22 12/19/22 Range/Units 17:19 00:09 PT 10.8 (9.0-12.0) sec APTT 26.8 32.2 H (22.0-30.0) sec CBC 12/18/22 12/18/22 Range/Units 07:21 17:19 WBC 9.0 7.6 (3.8-10.6) k/uL RBC 3.85 L 3.99 L (4.30-5.90) m/uL Hgb 12.6 L 13.1 (13.0-17.5) gm/dL Hct 36.3 L 37.6 L (39.0-53.0) % Plt Count 125 L 137 L (150-450) k/uL Comprehensive Metabolic Panel 12/18/22 Range/Units 07:21 Sodium 131 L (137-145) mmol/L Potassium 4.0 (3.5-5.1) mmol/L Chloride 100 (98-107) mmol/L Carbon Dioxide 24 (22-30) mmol/L BUN 25 H (9-20) mg/dL Creatinine 2.24 H (0.66-1.25) mg/dL Glucose 87 (74-99) mg/dL Calcium 7.7 L (8.4-10.2) mg/dL Current Medications Generic Name Dose Route Start Last Admin Trade Name Freq PRN Reason Stop Dose Admin Hydrocodone Bitart/Acetaminophen 1 each 12/17/22 12:52 12/18/22 01:56 Hydrocodone/Apap 5-325mg 1 Each Tab PO 1 each QID PRN Administration Pain Albuterol Sulfate 2 puff 12/17/22 12:52 Albuterol Hfa Inhaler INHALATION RT-Q4H PRN Shortness Of Breath Atorvastatin Calcium 40 mg 12/18/22 09:00 12/18/22 08:20 Atorvastatin 40 Mg Tab PO 40 mg DAILY CHRISTIANO Administration Doxazosin Mesylate 4 mg 12/17/22 21:00 12/18/22 19:56 Doxazosin 4 Mg Tab PO 4 mg HS CHRISTIANO Administration Etodolac 400 mg 12/17/22 12:52 Etodolac 400 Mg Tab PO BID PRN Pain Finasteride 5 mg 12/17/22 13:00 12/18/22 08:20 Finasteride 5 Mg Tab PO 5 mg DAILY CHRISTIANO Administration Heparin Sodium (Porcine) 0 unit 12/18/22 16:13 12/19/22 02:20 Heparin Sodium 1,000 Un/Ml (10ml Vl) IV 4,000 unit PER PROTOCOL PRN Administration Low PTT Protocol Hydromorphone HCl 0.5 mg 12/17/22 12:24 12/17/22 16:15 Hydromorphone 0.5 Mg/0.5 Ml Syringe IVP 0.5 mg Q4HR PRN Administration Pain Sodium Chloride 1,000 mls @ 75 mls/hr 12/16/22 19:00 12/19/22 06:27 Saline 0.9% IV Not Given .[id number] CHRISTIANO Ceftriaxone Sodium 2 gm/ 50 mls @ 100 mls/hr 12/17/22 16:00 12/18/22 08:20 Sodium Chloride IVPB 100 mls/hr Q24HR CHRISTIANO Administration Protocol Heparin Sodium/Sodium Chloride 250 mls @ 9.998 mls/hr 12/18/22 16:15 12/19/22 02:13 25,000 unit/ Sodium Chloride IV 12.87 units/kg/hr .Q24H CHRISTIANO 13.037 mls/hr Titration Protocol 9.87 UNITS/KG/HR Naloxone HCl 0.2 mg 12/16/22 18:49 Naloxone 0.4 Mg/Ml 1 Ml Vial IV Q2M PRN Opioid Reversal Ondansetron HCl 4 mg 12/16/22 18:49 12/18/22 09:52 Ondansetron 4 Mg/2 Ml Vial IVP 4 mg Q8HR PRN Administration Nausea And Vomiting Intake and Output 12/18/22 12/19/22 12/19/22 22:59 06:59 14:59 Intake Total 540 82.817 Output Total 100 750 Balance 440 -667.183 Intake: Intake, IV Titration 82.817 Amount Heparin Sod,Pork in 0.45% 82.817 NaCl 25,000 unit In 0.45 % NaCl 1 250ml.bag @ 9.87 UNITS/KG/HR 9.998 mls/hr IV .Q24H [facility] Rx#: [id number] Oral 540 Output: Urine 100 750 Other: Voiding Method Urinal Urinal Weight 100.5 kg 12/18/22 17:19 12/18/22 07:21
[2022-12-19 12:49] LABS: Basophils % (A) 0 %; Eosinophils # (A) 0.2 k/uL (0-0.7); Eosinophils % (A) 2 %; HCT 39.4 % (39.0-53.0); HGB 13.6 gm/dL (13.0-17.5); Lymphocytes % (A) 13 %; MCH 32.3 pg (25.0-35.0); MCHC 34.6 g/dL (31.0-37.0); MCV 93.3 fL (80.0-100.0); Monocytes # (A) 0.4 k/uL (0-1.0); Monocytes % (A) 5 %; Neutrophils # (A) 5.6 k/uL (1.3-7.7); Neutrophils % (A) 76 %; Platelet Count 151 k/uL (150-450); RBC 4.22 m/uL (4.30-5.90); WBC 7.4 k/uL (3.8-10.6)
[2022-12-19 12:59] LABS: Prothrombin Time 10.9 sec (9.0-12.0)
[2022-12-19 13:18] LABS: African American GFR (CKD) 35 (>60 ml/min/1.73 sqM); Anion Gap 6 mmol/L; Blood Urea Nitrogen 20 mg/dL (9-20); Calcium 7.9 mg/dL (8.4-10.2); Carbon Dioxide 25 mmol/L (22-30); Chloride 104 mmol/L (98-107); Glucose 94 mg/dL (74-99); Non-African American GFR(CKD) 30 (>60 ml/min/1.73 sqM); Potassium 4.2 mmol/L (3.5-5.1); Sodium 135 mmol/L (137-145)
--- NOTE | 2022-12-19 17:01 | P.PN ---
Subjective Progress Note Date: 12/18/22 Principal diagnosis: Complicated UTI/fever Patient is a 82-year-old male with a past medical history significant for kidney stone hypertension hyperlipidemia , presented to the outside facility with the flank pain he did have a fever and concerning for infected left ure teral stone and pyelonephritis, transferred to this facility to be evaluated by urology. on today's evaluation that is 12/18/2022, the patient is afebrile and the patient is currently breathing comfortably on room air patient denies having any chest pain shortness with a cough no abdominal pain or diarrhea. Patient did have a white count of 7.6, crit is 2.24, pro calcitonin is 3.01, blood cultures currently pending Objective - Vital Signs Vital signs: Vital Signs Temp 97.8 F 12/18/22 08:18 Pulse 76 12/18/22 08:18 Resp 18 12/18/22 08:18 BP 132/73 12/18/22 08:18 Pulse Ox 91 L 12/18/22 08:18 FiO2 Intake & Output 12/17/22 12/18/22 12/18/22 18:59 06:59 18:59 Intake Total 780 240 Output Total 500 900 Balance 280 -660 Weight 101.3 kg Intake: Oral 780 240 Output: Urine 500 900 Other: Voiding Method Urinal Urinal - Exam GENERAL DESCRIPTION: An elderly male lying in bed in no distress RESPIRATORY SYSTEM: Unlabored breathing , decreased breath sounds at bases HEART: S1 S2 regular rate and rhythm , ABDOMEN: Soft , no tenderness EXTREMITIES: No edema feet - Labs CBC & Chem 7: 12/19/22 11:33 12/19/22 11:33 Labs: Abnormal Lab Results - Last 24 Hours (Table) 12/17/22 12/18/22 Range/Units 12:42 07:21 Creatinine 2.24 H (0.66-1.25) mg/dL Troponin I 0.063 H* (0.000-0.034) ng/mL Microbiology - Last 24 Hours (Table) 12/16/22 16:52 Blood Culture - Preliminary Blood Assessment and Plan (1) Complicated UTI (urinary tract infection) Current Visit: Yes Status: Acute Code(s): N39.0 - URINARY TRACT INFECTION, SITE NOT SPECIFIED SNOMED Code(s): 61921371 (2) SIRS (systemic inflammatory response syndrome) Current Visit: Yes Status: Acute Code(s): R65.10 - SIRS OF NON-INFECTIOUS ORIGIN W/O ACUTE ORGAN DYSFUNCTION SNOMED Code(s): 051755557 Plan: 1patient presented hospital with left flank pain and did have a fever in this patient with recent diagnosis of left ureteral stone and hydronephrosis and likely secondary left-sided pyelonephritis patient did have some left-sided effusion however did not have significant respiratory symptoms to be suggestive of pneumonia. 2patient with renal insufficiency high risk of nephrotoxicity from vancomycin 3-Patient has been evaluated by urology awaiting cardiology clearance for cystoscopy and possible ureteral stent placement we will repeat a UA afterwards 4Patient to continue Rocephin 2 g daily Dictation was produced using [employer] dictation software. please excuse any grammatical, word or spelling errors. Time with Patient: Less than 30
--- NOTE | 2022-12-19 17:03 | P.PN ---
Subjective Progress Note Date: 12/19/22 Principal diagnosis: Complicated UTI/fever Patient is a 82-year-old male with a past medical history significant for kidney stone hypertension hyperlipidemia , presented to the outside facility with the flank pain he did have a fever and concerning for infected left ure teral stone and pyelonephritis, transferred to this facility to be evaluated by urology. on today's evaluation that is 12/19/2022, the patient remains to be afebrile and the patient is breathing comfortably on room air, the patient denies having any chest pain shortness with a cough no abdominal pain or diarrhea. Patient did have a white count of 7.4, the patient creatinine is down to 1.99, pro calcitonin is 3.01, blood cultures currently pending Objective - Vital Signs Vital signs: Vital Signs Temp 98.0 F 12/19/22 08:36 Pulse 68 12/19/22 14:00 Resp 18 12/19/22 14:00 BP 142/87 12/19/22 12:25 Pulse Ox 93 L 12/19/22 12:25 FiO2 Intake & Output 12/18/22 12/19/22 12/19/22 18:59 06:59 18:59 Intake Total 540 82.817 Output Total 400 850 800 Balance 140 -767.183 -800 Weight 100.5 kg Intake: Intake, IV Titration 82.817 Amount Heparin Sod,Pork in 0.45% 82.817 NaCl 25,000 unit In 0.45 % NaCl 1 250ml.bag @ 9.87 UNITS/KG/HR 9.998 mls/hr IV .Q24H [facility] Rx#: [id number] Oral 540 Output: Urine 400 850 800 Other: Voiding Method Urinal Urinal Urinal - Exam GENERAL DESCRIPTION: An elderly male lying in bed in no distress RESPIRATORY SYSTEM: Unlabored breathing , decreased breath sounds at bases HEART: S1 S2 regular rate and rhythm , ABDOMEN: Soft , no tenderness EXTREMITIES: No edema feet - Labs CBC & Chem 7: 12/19/22 11:33 12/19/22 11:33 Labs: Abnormal Lab Results - Last 24 Hours (Table) 12/18/22 12/18/22 12/18/22 Range/Units 07:21 14:33 17:19 RBC 3.99 L (4.30-5.90) m/uL Hct 37.6 L (39.0-53.0) % Plt Count 137 L (150-450) k/uL Lymphocytes # 0.8 L (1.0-4.8) k/uL APTT (22.0-30.0) sec Sodium (137-145) mmol/L Creatinine (0.66-1.25) mg/dL Calcium (8.4-10.2) mg/dL Troponin I 0.228 H* (0.000-0.034) ng/mL Procalcitonin 3.01 H (0.02-0.09) ng/mL 12/19/22 12/19/22 12/19/22 Range/Units 00:09 11:33 11:33 RBC 4.22 L (4.30-5.90) m/uL Hct (39.0-53.0) % Plt Count (150-450) k/uL Lymphocytes # (1.0-4.8) k/uL APTT 32.2 H (22.0-30.0) sec Sodium 135 L (137-145) mmol/L Creatinine 1.99 H (0.66-1.25) mg/dL Calcium 7.9 L (8.4-10.2) mg/dL Troponin I (0.000-0.034) ng/mL Procalcitonin (0.02-0.09) ng/mL Microbiology - Last 24 Hours (Table) 12/16/22 16:52 Blood Culture - Preliminary Blood Assessment and Plan (1) Complicated UTI (urinary tract infection) Current Visit: Yes Status: Acute Code(s): N39.0 - URINARY TRACT INFECTION, SITE NOT SPECIFIED SNOMED Code(s): 67896777 (2) SIRS (systemic inflammatory response syndrome) Current Visit: Yes Status: Acute Code(s): R65.10 - SIRS OF NON-INFECTIOUS ORIGIN W/O ACUTE ORGAN DYSFUNCTION SNOMED Code(s): 886247952 Plan: 1patient presented hospital with left flank pain and did have a fever in this patient with recent diagnosis of left ureteral stone and hydronephrosis and likely secondary left-sided pyelonephritis patient did have some left-sided effusion however did not have significant respiratory symptoms to be suggestive of pneumonia. 2patient with renal insufficiency high risk of nephrotoxicity from vancomycin 3-Patient has been evaluated by urology and apparently the patient has been cleared by cardiology for cystoscopy and possible ureteral stent placement , scheduled for tomorrow we will repeat a UA afterwards 4Patient to continue Rocephin 2 g daily and monitor clinical course closely Dictation was produced using [employer] dictation software. please excuse any grammatical, word or spelling errors. Time with Patient: Less than 30
--- NOTE | 2022-12-19 17:44 | P.PN ---
Subjective Progress Note Date: 12/18/22 82-year-old male who is transferred via EMS from [facility], past medical history significant for kidney stone hypertension hyperlipidemia apparently was recently evaluated and monitored hospital the patient has been diagnosed with a kidney stone apparently the patient did have a 8 mm left medial ureteral stone and the patient also suspected with a UTI patient was subsequent discharged home however the patient presented to hospital with worsening pain to the left flank he describes the pain to be sharp 7- 8 out of 10 no radiation some nausea but no vomiting no diarrhea patient on presentation to the hospital did have a fever of 101.7 degrees forearm height patient was not tachycardic hypotensive or hypoxic patient did have a normal white count with leukopenia BUN/creatinine has been mildly elevated troponins were elevated urine was negative COVID testing was negative patient did have a chest x-ray hypoventilatory changes small to moderate left effusion patient was started on vancomycin he did receive a dose of Zosyn Objective - Vital Signs Vital signs: Vital Signs Temp 97.8 F 12/18/22 08:18 Pulse 68 12/18/22 12:00 Resp 18 12/18/22 12:00 BP 139/73 12/18/22 12:00 Pulse Ox 92 L 12/18/22 12:00 FiO2 Intake & Output 12/17/22 12/18/22 12/18/22 18:59 06:59 18:59 Intake Total 780 240 Output Total 500 900 400 Balance 280 -660 -400 Weight 101.3 kg Intake: Oral 780 240 Output: Urine 500 900 400 Other: Voiding Method Urinal Urinal - Exam General Impression: Alert and oriented x3, not in acute distress HEENT: Normocephalic atraumatic, extra-ocular movements intact, pupils equal and reactive to light bilaterally, mucous membranes moist. Cardiovascular: Heart regular rate and rhythm Chest: Able to complete full sentences, no retractions, no tachypnea Abdomen: abdomen soft, non-tender, non-distended, no organomegaly Musculoskeletal: Pulses present and equal in all extremities, no peripheral edema Motor: no focal deficits noted Neurological: CN II-XII grossly intact, no focal motor or sensory deficits noted Skin: Intact with no visualized rashes Psych: Normal affect and mood - Labs CBC & Chem 7: 12/19/22 11:33 12/19/22 11:33 Labs: Abnormal Lab Results - Last 24 Hours (Table) 12/18/22 12/18/22 Range/Units 07:21 07:21 RBC 3.85 L (4.30-5.90) m/uL Hgb 12.6 L (13.0-17.5) gm/dL Hct 36.3 L (39.0-53.0) % Plt Count 125 L (150-450) k/uL Lymphocytes # 0.8 L (1.0-4.8) k/uL Sodium 131 L (137-145) mmol/L BUN 25 H (9-20) mg/dL Creatinine 2.24 H (0.66-1.25) mg/dL Calcium 7.7 L (8.4-10.2) mg/dL Microbiology - Last 24 Hours (Table) 12/16/22 16:52 Blood Culture - Preliminary Blood Assessment and Plan Assessment: 1. SIRS/sepsis; patient presents with tachycardia, tachypnea and a fever of 101.7; likely SIRS versus sepsis; white blood count remains within normal range 2. Left-sided pyelonephritis; patient received IV Zosyn and vancomycin in ED; blood cultures and urine culture is down with further recommendations once culture results are available; IDs consulted 3. Left-sided pleural effusion; possible pneumonia; patient has been placed on IV antibiotics; await ID recommendations 4. Left ureteral stone/hydronephrosis; imaging reveals an 8 mm stone in the left ureter with moderate hydronephrosis; consult urology 5. Worsening acute renal injury/likely obstructive uropathy; we will start patient on slow IV fluid hydration; monitor strict KIMBERLEY's and daily weights; monitor renal function and electrolytes; avoid nephrotoxins; consult urology for further recommendations on ureteral stone and hydronephrosis 6. Elevated troponin; EKG does not reveal any changes; we will trend troponin and order 2-D echo; consult cardiology pending results of workup 7. Hyponatremia; sodium 129 on presentation to ED; patient has been placed on IV fluids in form of normal saline; we will monitor electrolytes closely 7. Hypertension; losartan/hydrochlorothiazide 42614 one tablet daily; Cardura 4 mg daily at bedtime 8. Hyperlipidemia; Lipitor 40 mg daily; Zetia 10 mg daily 9. Asthma; not in exacerbation; Ventolin inhaler 2 puffs 4 times a day when necessary 10. BPH; Proscar 5 mg daily DVT prophylaxis; SCDs CODE STATUS; full code
--- NOTE | 2022-12-19 17:50 | P.PN ---
Subjective Progress Note Date: 12/19/22 82-year-old male who is transferred via EMS from [facility], past medical history significant for kidney stone hypertension hyperlipidemia apparently was recently evaluated and monitored hospital the patient has been diagnosed with a kidney stone apparently the patient did have a 8 mm left medial ureteral stone and the patient also suspected with a UTI patient was subsequent discharged home however the patient presented to hospital with worsening pain to the left flank he describes the pain to be sharp 7- 8 out of 10 no radiation some nausea but no vomiting no diarrhea patient on presentation to the hospital did have a fever of 101.7 degrees forearm height patient was not tachycardic hypotensive or hypoxic patient did have a normal white count with leukopenia BUN/creatinine has been mildly elevated troponins were elevated urine was negative COVID testing was negative patient did have a chest x-ray hypoventilatory changes small to moderate left effusion patient was started on vancomycin he did receive a dose of Zosyn 12/19/2022 the patient is seen and evaluated in room at bedside; remains to be afebrile and the patient is breathing comfortably on room air, the patient denies having any chest pain shortness with a cough no abdominal pain or diarrhea. Patient did have a white count of 7.4, the patient creatinine is down to 1.99, pro calcitonin is 3.01, blood cultures currently pending patient presented hospital with left flank pain and did have a fever in this patient with recent diagnosis of left ureteral stone and hydronephrosis and likely secondary left-sided pyelonephritis patient did have some left-sided effusion however did not have significant respiratory symptoms to be suggestive of pneumonia. patient with renal insufficiency high risk of nephrotoxicity from vancomycin -Patient has been evaluated by urology and apparently the patient has been cleared by cardiology for cystoscopy and possible ureteral stent placement , scheduled for tomorrow we will repeat a UA afterwards Patient to continue Rocephin 2 g daily and monitor clinical course closely - Patient has been evaluated by cardiology for elevated troponin; initially treated with IV heparin which has been discontinued by cardiology deeming elevated troponin related to acute renal failure Objective - Vital Signs Vital signs: Vital Signs Temp 98.0 F 12/19/22 08:36 Pulse 68 12/19/22 14:00 Resp 18 12/19/22 14:00 BP 142/87 12/19/22 12:25 Pulse Ox 93 L 12/19/22 12:25 FiO2 Intake & Output 12/18/22 12/19/22 12/19/22 18:59 06:59 18:59 Intake Total 540 82.817 Output Total 400 850 800 Balance 140 -767.183 -800 Weight 100.5 kg Intake: Intake, IV Titration 82.817 Amount Heparin Sod,Pork in 0.45% 82.817 NaCl 25,000 unit In 0.45 % NaCl 1 250ml.bag @ 9.87 UNITS/KG/HR 9.998 mls/hr IV .Q24H [facility] Rx#: [id number] Oral 540 Output: Urine 400 850 800 Other: Voiding Method Urinal Urinal Urinal - Exam General Impression: Alert and oriented x3, not in acute distress HEENT: Normocephalic atraumatic, extra-ocular movements intact, pupils equal and reactive to light bilaterally, mucous membranes moist. Cardiovascular: Heart regular rate and rhythm Chest: Able to complete full sentences, no retractions, no tachypnea Abdomen: abdomen soft, non-tender, non-distended, no organomegaly Musculoskeletal: Pulses present and equal in all extremities, no peripheral edema Motor: no focal deficits noted Neurological: CN II-XII grossly intact, no focal motor or sensory deficits noted Skin: Intact with no visualized rashes Psych: Normal affect and mood - Labs CBC & Chem 7: 12/19/22 11:33 12/19/22 11:33 Labs: Abnormal Lab Results - Last 24 Hours (Table) 12/18/22 12/18/22 12/18/22 Range/Units 07:21 14:33 17:19 RBC 3.99 L (4.30-5.90) m/uL Hct 37.6 L (39.0-53.0) % Plt Count 137 L (150-450) k/uL Lymphocytes # 0.8 L (1.0-4.8) k/uL APTT (22.0-30.0) sec Sodium (137-145) mmol/L Creatinine (0.66-1.25) mg/dL Calcium (8.4-10.2) mg/dL Troponin I 0.228 H* (0.000-0.034) ng/mL Procalcitonin 3.01 H (0.02-0.09) ng/mL 12/19/22 12/19/22 12/19/22 Range/Units 00:09 11:33 11:33 RBC 4.22 L (4.30-5.90) m/uL Hct (39.0-53.0) % Plt Count (150-450) k/uL Lymphocytes # (1.0-4.8) k/uL APTT 32.2 H (22.0-30.0) sec Sodium 135 L (137-145) mmol/L Creatinine 1.99 H (0.66-1.25) mg/dL Calcium 7.9 L (8.4-10.2) mg/dL Troponin I (0.000-0.034) ng/mL Procalcitonin (0.02-0.09) ng/mL Microbiology - Last 24 Hours (Table) 12/16/22 16:52 Blood Culture - Preliminary Blood Assessment and Plan Assessment: 1. SIRS/sepsis; patient presents with tachycardia, tachypnea and a fever of 101.7; likely SIRS versus sepsis; white blood count remains within normal range 2. Left-sided pyelonephritis; patient received IV Zosyn and vancomycin in ED; blood cultures and urine culture is down with further recommendations once culture results are available; IDs consulted 3. Left-sided pleural effusion; possible pneumonia; patient has been placed on IV antibiotics; await ID recommendations 4. Left ureteral stone/hydronephrosis; imaging reveals an 8 mm stone in the left ureter with moderate hydronephrosis; consult urology 5. Worsening acute renal injury/likely obstructive uropathy; we will start patient on slow IV fluid hydration; monitor strict KIMBERLEY's and daily weights; m onitor renal function and electrolytes; avoid nephrotoxins; consult urology for further recommendations on ureteral stone and hydronephrosis 6. Elevated troponin; EKG does not reveal any changes; we will trend troponin and order 2-D echo; consult cardiology pending results of workup 7. Hyponatremia; sodium 129 on presentation to ED; patient has been placed on IV fluids in form of normal saline; we will monitor electrolytes closely 7. Hypertension; losartan/hydrochlorothiazide 57297 one tablet daily; Cardura 4 mg daily at bedtime 8. Hyperlipidemia; Lipitor 40 mg daily; Zetia 10 mg daily 9. Asthma; not in exacerbation; Ventolin inhaler 2 puffs 4 times a day when necessary 10. BPH; Proscar 5 mg daily DVT prophylaxis; SCDs CODE STATUS; full code
[2022-12-19] MEDS: ACETAMINOPHEN TAB 500 MG TAB PO PRN (20:57)
[2022-12-19] MEDS: DOXAZOSIN 4 MG TAB PO SCH (20:58)
[2022-12-20] MEDS: ONDANSETRON 4 MG/2 ML VIAL IVP PRN (03:19)
[2022-12-20] MEDS: SODIUM CHLORIDE 0.9% 1,000 ML IV SCH ×2 (03:23→17:44)
[2022-12-20] MEDS ORDERED: SALINE NASAL GEL 14.1 GM TUBE NASAL PRN (05:01)
[2022-12-20] MEDS: FINASTERIDE 5 MG TAB PO SCH (07:53)
[2022-12-20] MEDS: ATORVASTATIN 40 MG TAB PO SCH (07:53)
--- NOTE | 2022-12-20 08:06 | CA ---
Transthoracic Echo Report Name: Alfredo Robertson Age: 82 Gender: M : 1940 Exam Date: 12/19/2022 10:45 Exam Location: [facility] Ht (in): 71 Wt (lb): 223 Ordering Physician: Xavier De La Torre MD Attending/Referring Phys: [id number], Britt Chip Unloader Maggie Aragon RDCS Procedure CPT: Indications: elevated trop Cardiac Hx: Technical Quality: Fair Contrast 1: Total Dose (mL): Contrast 2: Total Dose (mL): MEASUREMENTS (Male / Female) Normal Values 2D ECHO LV Diastolic Diameter PLAX 5.7 cm 4.2 - 5.9 / 3.9 - 5.3 cm LV Systolic Diameter PLAX 4.6 cm IVS Diastolic Thickness 1.4 cm 0.6 - 1.0 / 0.6 - 0.9 cm LVPW Diastolic Thickness 1.5 cm 0.6 - 1.0 / 0.6 - 0.9 cm LV Relative Wall Thickness 0.5 RV Internal Dim ED PLAX 4.9 cm LVOT Diameter 1.9 cm LA Volume 88.0 cm??? 18 - 58 / 22 - 52 cm??? M-MODE Aortic Root Diameter MM 4.3 cm LA Systolic Diameter MM 5.1 cm LA Ao Ratio MM 1.2 AV Cusp Separation MM 1.4 cm DOPPLER AV Peak Velocity 267.2 cm/s AV Peak Gradient 28.6 mmHg AV Mean Velocity 178.9 cm/s AV Mean Gradient 14.7 mmHg AV Velocity Time Integral 56.4 cm AI Peak Velocity 470.8 cm/s AI Peak Gradient 88.7 mmHg AI Pressure Half Time 372.9 ms LVOT Peak Velocity 101.5 cm/s LVOT Peak Gradient 4.1 mmHg LVOT Velocity Time Integral 24.8 cm LVOT Stroke Volume 71.2 cm??? LVOT Stroke Volume Index 32.2 ml/m??? LVOT Cardiac Index 2374.2 cm???/min???m??? AV Area Cont Eq vti 1.3 cm??? AV Area Cont Eq pk 1.1 cm??? MV Area PHT 2.5 cm??? Mitral E Point Velocity 60.7 cm/s Mitral A Point Velocity 119.4 cm/s Mitral E to A Ratio 0.5 MV Deceleration Time 308.2 ms MV E' Velocity 4.4 cm/s Mitral E to MV E' Ratio 13.8 TR Peak Velocity 328.2 cm/s TR Peak Gradient 43.1 mmHg Right Ventricular Systolic Press 46.7 mmHg FINDINGS Left Ventricle Moderately increased left ventricular wall thickness. Left ventricular cavity size normal. Hypokinetic inferior wall. Left ventricular ejection fraction is estimated at 45-50 %. Right Ventricle Moderate pulmonary hypertension. Moderate right ventricular dilatation. Right Atrium Normal right atrial size. Left Atrium Severely increased left atrial volume. Moderately increased left atrial area. Mitral Valve Mitral valve thickened. Mild mitral annular calcification. Mugu-mo-vvznrosl mitral regurgitation. Aortic Valve Liyu-zn-gyjrivus aortic stenosis with a peak gradient of 29 mmHg and a mean gradient of 15 mmHg. Vmfw-ph-dornasso aortic regurgitation. Tricuspid Valve Ahgg-bo-zlnokpyc tricuspid regurgitation. Pulmonic Valve Structurally normal pulmonic valve. Mild pulmonic regurgitation. Pericardium No pericardial effusion. Aorta Normal size aortic root and proximal ascending aorta. CONCLUSIONS Mild LV systolic dysfunction Moderate coronary hypertension Mild to moderate mitral regurgitation Mild to moderate aortic stenosis with csim-pi-hugrzlnv tricuspid regurgitation Previewed by: Dr. Duglas Baeza MD (Electronically Signed) Final Date: 20 December 2022 08:05
[2022-12-20] MEDS ORDERED: ASPIRIN 81 MG PO SCH (09:00)
[2022-12-20] MEDS ORDERED: LACTATED RINGERS 1,000 ML IV ONE (09:35)
--- NOTE | 2022-12-20 10:20 | P.PN ---
Subjective HISTORY OF PRESENT ILLNESS: This is an 82-year-old male previously seen by Dr. Pérez subsequently by Dr. Cai last seen in the office on 06/16/2021 with past medical history of coronary artery disease status post 2 vessel bypass at [facility] in [place] after an myocardial infarction in 1987, hypertension, hyperlipidemia, stroke, carotid artery stenosis. Patient presented to [facility] due to left flank pain. CAT scan showed a ureteral calculus the patient was transferred to [facility] for intervention by urology. Patient was scheduled for cystoscopy this morning but troponins were ordered over the past 3 days which came back elevated and thus this consult was generated. Patient has been started on heparin drip and surgery has been held until cleared by cardiology. Patient denies having any chest pain, shortness of breath. He denies any dyspnea on exertion. He denies any chest pain with exertion. EKG sinus rhythm with first-degree block Chest x-ray: Hypoventilatory changes. Appears to be small to moderate left effusion with adjacent atelectasis and/or consolidation. Troponin 0.072, 0.063, 0.2-8 obtained over 3 days. BUN 25 creatinine 2.24. WBC 7.6, hemoglobin 13.1, platelet count 137. Home cardiac medications: Atorvastatin 40 mg daily, Zetia 10 mg daily, losartan/100 chlorothiazide 94839 one daily, Proscar 5 mg daily, Cardura 4 mg at bedtime 12/20/2022 Patient examined this morning at the bedside. Patient denies chest pain or pressure. He denies shortness of breath. Echocardiogram performed revealing ejection fraction 45-50%, moderate pulmonary hypertension, ylmk-dk-cqayocda mitral regurgitation, and mild to moderate aortic stenosis with mild to moderate tricuspid regurgitation. Patient is scheduled for cystoscopy today with Dr. Bourne PHYSICAL EXAM: VITAL SIGNS: Reviewed. GENERAL: Well-developed in no acute distress. NECK: Supple. No JVD or thyromegaly LUNGS: Respirations even and unlabored. Lungs essentially clear to auscultation bilaterally. HEART: Regular rate and rhythm. S1 and S2 heard. Systolic murmur noted EXTREMITIES: Normal range of motion. No clubbing or cyanosis. Peripheral pulses intact. No lower extremity edema ASSESSMENT: Left hydronephrosis due to left distal ureteral calculus Elevated troponin most likely due to acute kidney injury Acute kidney injury secondary to obstruction History of coronary artery disease with 2 vessel bypass Hypertension Hyperlipidemia History of CVA Carotid artery stenosis PLAN: Continue current cardiac medications Patient was cleared to undergo procedure yesterday by Dr. Baeza Patient to follow up post discharge with Dr. Cai Further recommendations pending patient course Nurse practitioner note has been reviewed by physician. Signing provider agrees with the documented findings, assessment, and plan of care. Objective - Vital Signs Vital signs: Vital Signs Temp 98.9 F 12/20/22 09:42 Pulse 69 12/20/22 09:42 Resp 16 12/20/22 09:42 BP 163/83 12/20/22 09:42 Pulse Ox 93 L 12/20/22 09:42 FiO2 Intake & Output 12/19/22 12/20/22 12/20/22 18:59 06:59 18:59 Intake Total 180 Output Total 1250 850 150 Balance -1070 -850 -150 Intake: Oral 180 Output: Urine 1250 850 150 Other: Voiding Method Urinal Urinal Urinal # Voids 1 1 - Labs CBC & Chem 7: 12/19/22 11:33 12/19/22 11:33 Labs: Abnormal Lab Results - Last 24 Hours (Table) 12/19/22 12/19/22 Range/Units 11:33 11:33 RBC 4.22 L (4.30-5.90) m/uL Sodium 135 L (137-145) mmol/L Creatinine 1.99 H (0.66-1.25) mg/dL Calcium 7.9 L (8.4-10.2) mg/dL Microbiology - Last 24 Hours (Table) 12/16/22 16:52 Blood Culture - Preliminary Blood
[2022-12-20 10:22] LABS: African American GFR (CKD) 39 (>60 ml/min/1.73 sqM); Anion Gap 8 mmol/L; Blood Urea Nitrogen 19 mg/dL (9-20); Calcium 7.9 mg/dL (8.4-10.2); Carbon Dioxide 22 mmol/L (22-30); Chloride 104 mmol/L (98-107); Glucose 97 mg/dL (74-99); Non-African American GFR(CKD) 33 (>60 ml/min/1.73 sqM); Sodium 134 mmol/L (137-145)
[2022-12-20] MEDS ORDERED: PHENYLEPHRINE-0.9% NACL SYG 1,000 MCG/10 ML SYRINGE ONE (11:23)
[2022-12-20] MEDS ORDERED: SUCCINYLCHOLINE CHLORIDE 200 MG/10 ML VIAL IV ONE (11:23)
[2022-12-20] MEDS ORDERED: fentaNYL (PF) 50 MCG/ML 2 ML AMP ONE (11:23)
[2022-12-20] MEDS ORDERED: ROCURONIUM 10 MG/ML (5 ML VIAL) IV ONE (11:23)
[2022-12-20] MEDS ORDERED: PROPOFOL 10 MG/ML 20 ML VIAL IV ONE (11:23)
[2022-12-20] MEDS ORDERED: GLYCOPYRROLATE 0.2 MG/ML 2 ML VIAL ONE (11:23)
[2022-12-20] MEDS ORDERED: LIDOCAINE 2% INJ 20 MG/ML (2 ML VIAL) ONE (11:23)
[2022-12-20] MEDS ORDERED: ePHEDrine 50 MG/ML 1 ML VIAL ONE (11:23)
[2022-12-20] MEDS ORDERED: NEOSTIGMINE 1 MG/ML 10 ML VIAL ONE (11:23)
[2022-12-20] MEDS ORDERED: IOPAMIDOL-370 100ML BTL MISCELLANE ONE (11:54)
[2022-12-20] MEDS ORDERED: MEPERIDINE 50 MG/ML SYRINGE IVP ONE (13:00)
--- NOTE | 2022-12-20 13:45 | FL ---
Intraoperative/procedural fluoroscopic services were provided. Total fluoroscopy time is 5 seconds wi th a total of 2 submitted images to PACS. Please see the operative/procedural note for further detail s. DAP: [id number] mGym2
[2022-12-20] MEDS: ACETAMINOPHEN TAB 500 MG TAB PO PRN (15:16)
--- NOTE | 2022-12-20 15:39 | P.PN ---
Subjective Progress Note Date: 12/20/22 82-year-old male who is transferred via EMS from [facility], past medical history significant for kidney stone hypertension hyperlipidemia apparently was recently evaluated and monitored hospital the patient has been diagnosed with a kidney stone apparently the patient did have a 8 mm left medial ureteral stone and the patient also suspected with a UTI patient was subsequent discharged home however the patient presented to hospital with worsening pain to the left flank he describes the pain to be sharp 7- 8 out of 10 no radiation some nausea but no vomiting no diarrhea patient on presentation to the hospital did have a fever of 101.7 degrees forearm height patient was not tachycardic hypotensive or hypoxic patient did have a normal white count with leukopenia BUN/creatinine has been mildly elevated troponins were elevated urine was negative COVID testing was negative patient did have a chest x-ray hypoventilatory changes small to moderate left effusion patient was started on vancomycin he did receive a dose of Zosyn 12/19/2022 the patient is seen and evaluated in room at bedside; remains to be afebrile and the patient is breathing comfortably on room air, the patient denies having any chest pain shortness with a cough no abdominal pain or diarrhea. Patient did have a white count of 7.4, the patient creatinine is down to 1.99, pro calcitonin is 3.01, blood cultures currently pending patient presented hospital with left flank pain and did have a fever in this patient with recent diagnosis of left ureteral stone and hydronephrosis and likely secondary left-sided pyelonephritis patient did have some left-sided effusion however did not have significant respiratory symptoms to be suggestive of pneumonia. patient with renal insufficiency high risk of nephrotoxicity from vancomycin -Patient has been evaluated by urology and apparently the patient has been cleared by cardiology for cystoscopy and possible ureteral stent placement , scheduled for tomorrow we will repeat a UA afterwards Patient to continue Rocephin 2 g daily and monitor clinical course closely - Patient has been evaluated by cardiology for elevated troponin; initially treated with IV heparin which has been discontinued by cardiology deeming elevated troponin related to acute renal failure 12/20. Patient seen and examined. Patient complaining of difficulty taking deep breaths. Patient had cystoscopy done REVIEW OF SYSTEMS: CONSTITUTIONAL: No fever, no malaise,. CARDIOVASCULAR: No chest pain, no palpitations, no syncope. PULMONARY: As mentioned above GASTROINTESTINAL: No diarrhea, no nausea, no vomiting, no abdominal pain. NEUROLOGICAL: No headaches, no weakness, PHYSICAL EXAMINATION: GENERAL: The patient is alert and oriented x3, not in any acute distress. Well developed, well nourished. HEENT: Pupils are round and equally reacting to light. EOMI. No scleral icterus. No conjunctival pallor. Normocephalic, atraumatic. No pharyngeal erythema. No thyromegaly. CARDIOVASCULAR: S1 and S2 present. No murmurs, rubs, or gallops. PULMONARY: Chest is clear to auscultation, no wheezing or crackles. ABDOMEN: Soft, nontender, nondistended, normoactive bowel sounds. No palpable organomegaly. MUSCULOSKELETAL: No joint swelling or deformity. EXTREMITIES: No cyanosis, clubbing, or pedal edema. NEUROLOGICAL: Gross neurological examination did not reveal any focal deficits. SKIN: No rashes. Assessment and plan 1. sepsis; patient presents with tachycardia, tachypnea and a fever of 101.7; likely SIRS versus sepsis; white blood count remains within normal range 2. Left-sided pyelonephritis; follow-up on blood cultures,Follow-up urine cultures Continue IV Rocephin, ID following 3. Left-sided pleural effusion; encourage use of I-S 4. Left ureteral stone/hydronephrosis; imaging reveals an 8 mm stone in the lef t ureter with moderate hydronephrosis; urology consulted, cardiology has cleared the patient for cystoscopy 5. Worsening acute renal injury/likely obstructive uropathy; IV fluid hydration; monitor strict KIMBERLEY's and daily weights; monitor renal function and electrolytes; avoid nephrotoxins 6. Elevated troponin; EKG does not reveal any changes; cardiology cleared the patient for cystoscopy 7. Hyponatremia; monitor BMP 7. Hypertension; losartan/hydrochlorothiazide 36541 one tablet daily; Cardura 4 mg daily at bedtime 8. Hyperlipidemia; Lipitor 40 mg daily; Zetia 10 mg daily 9. Asthma; not in exacerbation; Ventolin inhaler 2 puffs 4 times a day when necessary 10. BPH; Proscar 5 mg daily Labs and medication were reviewed.. Continue same treatment. Continue with symptomatic treatment. Resume home medication. Monitor labs and vitals. DVT and GI prophylaxis. Further recommendations as per clinical course of the patient Dictation was produced using [employer] software. please excuse any grammatical, word or spelling errors. Objective - Vital Signs Vital signs: Vital Signs Temp 98.9 F 12/20/22 09:42 Pulse 69 12/20/22 09:42 Resp 16 12/20/22 09:42 BP 163/83 12/20/22 09:42 Pulse Ox 93 L 12/20/22 09:42 FiO2 Intake & Output 12/19/22 12/20/22 12/20/22 18:59 06:59 18:59 Intake Total 180 Output Total 1250 850 150 Balance -1070 -850 -150 Intake: Oral 180 Output: Urine 1250 850 150 Other: Voiding Method Urinal Urinal Urinal # Voids 1 1 - Labs CBC & Chem 7: 12/19/22 11:33 12/20/22 09:07 Labs: Abnormal Lab Results - Last 24 Hours (Table) 12/19/22 12/19/22 12/20/22 Range/Units 11:33 11:33 09:07 RBC 4.22 L (4.30-5.90) m/uL Sodium 135 L 134 L (137-145) mmol/L Creatinine 1.99 H 1.84 H (0.66-1.25) mg/dL Calcium 7.9 L 7.9 L (8.4-10.2) mg/dL Microbiology - Last 24 Hours (Table) 12/16/22 16:52 Blood Culture - Preliminary Blood
--- NOTE | 2022-12-20 16:58 | XR ---
EXAMINATION TYPE: XR chest 1V portable DATE OF EXAM: 12/20/2022 4:52 PM COMPARISON: Chest radiographs from 12/16/2022 TECHNIQUE: XR chest 1V portable Frontal view of the chest. CLINICAL INDICATION:Male, 82 years old with history of dyspnea post procedure; FINDINGS: Lungs/Pleura: There is no evidence of pleural effusion, focal consolidation, or pneumothorax. Pulmonary vascularity: Unremarkable. Heart/mediastinum: Cardiomediastinal silhouette is unremarkable. Post aortic valve repair changes. Musculoskeletal: No acute osseous pathology. Midline sternotomy wires are noted. Post right rotator c uff repair changes with anchors in place. IMPRESSION: Low lung volumes with a generalized hazy appearance which could represent atelectasis versus pulmonar y edema correlate with serum BNP.
[2022-12-20] MEDS: DOXAZOSIN 4 MG TAB PO SCH (20:04)
[2022-12-20] MEDS: HYDROcodone/APAP 5-325MG 1 EACH TAB PO PRN (20:04)
[2022-12-20 20:44] LABS: Appearance,Urine Cloudy (Clear); Bacteria,Urine Rare /hpf; Bilirubin,Urine Negative (Negative); Blood,Urine Large (Negative); Color,Urine Red; Glucose,Urine (UA) Negative (Negative); Ketones,Urine Negative (Negative); Leukocyte Esterase,Urine Large (Negative); Mucus,Urine Rare /hpf; Nitrite,Urine Negative (Negative); Protein,Urine 2+ (Negative); RBC,Urine >182 /hpf (0-5); Specific Gravity,Urine 1.017 (1.001-1.035); Urobilinogen,Urine <2.0 mg/dL (<2.0); WBC,Urine >182 /hpf (0-5)
[2022-12-21] MEDS: FINASTERIDE 5 MG TAB PO SCH (07:59)
[2022-12-21] MEDS: ASPIRIN 81 MG PO SCH (07:59)
[2022-12-21] MEDS: ATORVASTATIN 40 MG TAB PO SCH (07:59)
--- NOTE | 2022-12-21 10:38 | P.PN ---
Subjective Progress Note Date: 12/21/22 Postoperative day #1 status post left sided ureteroscopy with holmium laser and stent insertion. Denies any flank pain and gross hematuria or dysuria Objective - Vital Signs Vital signs: Vital Signs Temp 97.6 F 12/21/22 07:57 Pulse 74 12/21/22 08:00 Resp 17 12/21/22 07:57 BP 122/71 12/21/22 07:57 Pulse Ox 94 L 12/21/22 07:57 FiO2 Intake & Output 12/20/22 12/21/22 12/21/22 18:59 06:59 18:59 Intake Total 1440 240 Output Total 310 450 Balance 1130 -450 240 Intake: IV 700 Oral 740 240 Output: Urine 300 450 Estimated Blood Loss 10 Other: Voiding Method Urinal Urinal Urinal # Voids 1 - Constitutional General appearance: Present: no acute distress - Gastrointestinal General gastrointestinal: Present: soft. Absent: distended, tenderness - Psychiatric Psychiatric: Present: A&O x's 3 - Labs CBC & Chem 7: 12/19/22 11:33 12/20/22 09:07 Labs: Abnormal Lab Results - Last 24 Hours (Table) 12/20/22 Range/Units 19:56 Urine Protein 2+ H (Negative) Urine Blood Large H (Negative) Ur Leukocyte Esterase Large H (Negative) Urine RBC >182 H (0-5) /hpf Urine WBC >182 H (0-5) /hpf Urine WBC Clumps Many H (None) /hpf Urine Bacteria Rare H (None) /hpf Urine Mucus Rare H (None) /hpf Assessment and Plan Assessment: 82-year-old male with history of left-sided distal ureteral stone, underwent left-sided ureteroscopy with holmium laser and stent insertion by Dr Bourne yesterday -Okay for discharge from your standpoint, advised to follow up with Dr. Zaldivar for stent removal and once 2 weeks
[2022-12-21 11:06] LABS: ALT 17 U/L (4-49); AST 22 U/L (17-59); African American GFR (CKD) 32 (>60 ml/min/1.73 sqM); Albumin 2.7 g/dL (3.5-5.0); Alkaline Phosphatase 78 U/L (38-126); Anion Gap 9 mmol/L; Blood Urea Nitrogen 27 mg/dL (9-20); Calcium 7.8 mg/dL (8.4-10.2); Carbon Dioxide 23 mmol/L (22-30); Chloride 100 mmol/L (98-107); Glucose 105 mg/dL (74-99); Non-African American GFR(CKD) 28 (>60 ml/min/1.73 sqM); Potassium 4.3 mmol/L (3.5-5.1); Sodium 132 mmol/L (137-145); Total Bilirubin 0.7 mg/dL (0.2-1.3); Total Protein 5.3 g/dL (6.3-8.2)
[2022-12-21 11:19] LABS: Basophils # (A) 0.1 k/uL (0-0.2); Basophils % (A) 0 %; Eosinophils # (A) 0.1 k/uL (0-0.7); Eosinophils % (A) 1 %; HCT 37.4 % (39.0-53.0); HGB 12.7 gm/dL (13.0-17.5); Lymphocytes # (A) 1.3 k/uL (1.0-4.8); Lymphocytes % (A) 6 %; MCH 32.3 pg (25.0-35.0); MCV 94.8 fL (80.0-100.0); Mean Platelet Volume 8.5; Monocytes # (A) 1.2 k/uL (0-1.0); Monocytes % (A) 5 %; Neutrophils # (A) 20.9 k/uL (1.3-7.7); Neutrophils % (A) 88 %; Platelet Count 137 k/uL (150-450); RBC 3.94 m/uL (4.30-5.90); RDW 13.5 % (11.5-15.5); WBC 23.9 k/uL (3.8-10.6)
--- NOTE | 2022-12-21 13:13 | P.PN ---
Subjective Progress Note Date: 12/21/22 82-year-old male who is transferred via EMS from [facility], past medical history significant for kidney stone hypertension hyperlipidemia apparently was recently evaluated and monitored hospital the patient has been diagnosed with a kidney stone apparently the patient did have a 8 mm left medial ureteral stone and the patient also suspected with a UTI patient was subsequent discharged home however the patient presented to hospital with worsening pain to the left flank he describes the pain to be sharp 7- 8 out of 10 no radiation some nausea but no vomiting no diarrhea patient on presentation to the hospital did have a fever of 101.7 degrees forearm height patient was not tachycardic hypotensive or hypoxic patient did have a normal white count with leukopenia BUN/creatinine has been mildly elevated troponins were elevated urine was negative COVID testing was negative patient did have a chest x-ray hypoventilatory changes small to moderate left effusion patient was started on vancomycin he did receive a dose of Zosyn 12/19/2022 the patient is seen and evaluated in room at bedside; remains to be afebrile and the patient is breathing comfortably on room air, the patient denies having any chest pain shortness with a cough no abdominal pain or diarrhea. Patient did have a white count of 7.4, the patient creatinine is down to 1.99, pro calcitonin is 3.01, blood cultures currently pending patient presented hospital with left flank pain and did have a fever in this patient with recent diagnosis of left ureteral stone and hydronephrosis and likely secondary left-sided pyelonephritis patient did have some left-sided effusion however did not have significant respiratory symptoms to be suggestive of pneumonia. patient with renal insufficiency high risk of nephrotoxicity from vancomycin -Patient has been evaluated by urology and apparently the patient has been cleared by cardiology for cystoscopy and possible ureteral stent placement , scheduled for tomorrow we will repeat a UA afterwards Patient to continue Rocephin 2 g daily and monitor clinical course closely - Patient has been evaluated by cardiology for elevated troponin; initially treated with IV heparin which has been discontinued by cardiology deeming elevated troponin related to acute renal failure 12/20. Patient seen and examined. Patient complaining of difficulty taking deep breaths. Patient had cystoscopy done 12/21. Patient seen and examined .status post left sided ureteroscopy with holmium laser and stent insertion. States he feels better compared to yesterday. REVIEW OF SYSTEMS: CONSTITUTIONAL: No fever, no malaise,. CARDIOVASCULAR: No chest pain, no palpitations, no syncope. PULMONARY: As mentioned above GASTROINTESTINAL: No diarrhea, no nausea, no vomiting, no abdominal pain. NEUROLOGICAL: No headaches, no weakness, PHYSICAL EXAMINATION: GENERAL: The patient is alert and oriented x3, not in any acute distress. Well developed, well nourished. HEENT: Pupils are round and equally reacting to light. EOMI. No scleral icterus. No conjunctival pallor. Normocephalic, atraumatic. No pharyngeal erythema. No thyromegaly. CARDIOVASCULAR: S1 and S2 present. No murmurs, rubs, or gallops. PULMONARY: Chest is clear to auscultation, no wheezing or crackles. ABDOMEN: Soft, nontender, nondistended, normoactive bowel sounds. No palpable organomegaly. MUSCULOSKELETAL: No joint swelling or deformity. EXTREMITIES: No cyanosis, clubbing, or pedal edema. NEUROLOGICAL: Gross neurological examination did not reveal any focal deficits. SKIN: No rashes. Assessment and plan sepsis; Left-sided pyelonephritis; Left ureteral stone/hydronephrosis; Monitor vital signs Monitor CBC Follow-up on urine cultures status post left sided ureteroscopy with holmium laser and stent insertion Continue IV Rocephin, ID following Left-sided pleural effusion; encourage use of I-S, pulmonology following Worsening acute renal injury/likely obstructive uropathy; monitor strict KIMBERLEY's and daily weights; monitor renal function and electrolytes; avoid nephrotoxins Elevated troponin; EKG does not reveal any changes; cardiology cleared the patient for cystoscopy Hyponatremia; monitor BMP Hypertension; losartan/hydrochlorothiazide 56612 one tablet daily; Cardura 4 mg daily at bedtime Hyperlipidemia; Lipitor 40 mg daily; Zetia 10 mg daily Asthma; not in exacerbation; Ventolin inhaler 2 puffs 4 times a day when necessary BPH; Proscar 5 mg daily Labs and medication were reviewed.. Continue same treatment. Continue with symptomatic treatment. Resume home medication. Monitor labs and vitals. DVT and GI prophylaxis. Further recommendations as per clinical course of the patient Dictation was produced using [employer] dictation software. please excuse any grammatical, word or spelling errors. Objective - Vital Signs Vital signs: Vital Signs Temp 97.6 F 12/21/22 07:57 Pulse 74 12/21/22 08:00 Resp 17 12/21/22 07:57 BP 122/71 12/21/22 07:57 Pulse Ox 94 L 12/21/22 07:57 FiO2 Intake & Output 12/20/22 12/21/22 12/21/22 18:59 06:59 18:59 Intake Total 1440 240 Output Total 310 450 Balance 1130 -450 240 Intake: IV 700 Oral 740 240 Output: Urine 300 450 Estimated Blood Loss 10 Other: Voiding Method Urinal Urinal Urinal # Voids 1 - Labs CBC & Chem 7: 12/21/22 10:31 12/21/22 10:31 Labs: Abnormal Lab Results - Last 24 Hours (Table) 12/20/22 12/20/22 Range/Units 09:07 19:56 Sodium 134 L (137-145) mmol/L Creatinine 1.84 H (0.66-1.25) mg/dL Calcium 7.9 L (8.4-10.2) mg/dL Urine Protein 2+ H (Negative) Urine Blood Large H (Negative) Ur Leukocyte Esterase Large H (Negative) Urine RBC >182 H (0-5) /hpf Urine WBC >182 H (0-5) /hpf Urine WBC Clumps Many H (None) /hpf Urine Bacteria Rare H (None) /hpf Urine Mucus Rare H (None) /hpf
[2022-12-21] MEDS ORDERED: CEFEPIME 2 GM in SODIUM CHLORIDE 0.9% 100 ML IVPB SCH (13:15)
[2022-12-21] MEDS: SODIUM CHLORIDE 0.9% 1,000 ML IV SCH (14:15)
--- NOTE | 2022-12-21 17:02 | P.PN ---
Subjective Progress Note Date: 12/20/22 Principal diagnosis: Complicated UTI/fever Patient is a 82-year-old male with a past medical history significant for kidney stone hypertension hyperlipidemia , presented to the outside facility with the flank pain he did have a fever and concerning for infected left ure teral stone and pyelonephritis, transferred to this facility to be evaluated by urology. Patient is status post left sided ureteroscopy with holmium laser and stent insertion on 12/20/2022 on today's evaluation that is 12/20/2022, the patient did spike a fever of 102.2F this afternoon postprocedure, patient denies any chest pain or shortness of breath with occasional cough some nausea but no vomiting and abdominal pain has decreased and no diarrhea Patient did have a white count of 7.4 as of yesterday no CBC was done today, the patient creatinine is down to 1.84, pro calcitonin is 3.01, blood cultures initially so for negative Objective - Vital Signs Vital signs: Vital Signs Temp 98.9 F 12/20/22 09:42 Pulse 69 12/20/22 09:42 Resp 16 12/20/22 09:42 BP 163/83 12/20/22 09:42 Pulse Ox 93 L 12/20/22 09:42 FiO2 Intake & Output 12/19/22 12/20/22 12/20/22 18:59 06:59 18:59 Intake Total 180 600 Output Total 1250 850 160 Balance -1070 -850 440 Intake: IV 600 Oral 180 Output: Urine 1250 850 150 Estimated Blood Loss 10 Other: Voiding Method Urinal Urinal Urinal # Voids 1 1 - Exam GENERAL DESCRIPTION: An elderly male lying in bed in no distress RESPIRATORY SYSTEM: Unlabored breathing , decreased breath sounds at bases HEART: S1 S2 regular rate and rhythm , ABDOMEN: Soft , no tenderness EXTREMITIES: No edema feet - Labs CBC & Chem 7: 12/21/22 10:31 12/21/22 10:31 Labs: Abnormal Lab Results - Last 24 Hours (Table) 12/19/22 12/20/22 Range/Units 11:33 09:07 Sodium 135 L 134 L (137-145) mmol/L Creatinine 1.99 H 1.84 H (0.66-1.25) mg/dL Calcium 7.9 L 7.9 L (8.4-10.2) mg/dL Microbiology - Last 24 Hours (Table) 12/16/22 16:52 Blood Culture - Preliminary Blood Assessment and Plan (1) Complicated UTI (urinary tract infection) Current Visit: Yes Status: Acute Code(s): N39.0 - URINARY TRACT INFECTION, SITE NOT SPECIFIED SNOMED Code(s): 22028385 (2) SIRS (systemic inflammatory response syndrome) Current Visit: Yes Status: Acute Code(s): R65.10 - SIRS OF NON-INFECTIOUS ORIGIN W/O ACUTE ORGAN DYSFUNCTION SNOMED Code(s): 024135816 Plan: 1patient presented hospital with left flank pain and did have a fever in this patient with recent diagnosis of left ureteral stone and hydronephrosis and likely secondary left-sided pyelonephritis patient did have some left-sided effusion however did not have significant respiratory symptoms to be suggestive of pneumonia. 2patient with renal insufficiency high risk of nephrotoxicity from vancomycin 3-Patient has been evaluated by urology and the patient is status post left sided ureteroscopy with holmium laser and stent insertion 4Patient did have a new fever postprocedure we will repeat his blood cultures check a UA and a culture continue with Rocephin, adjust antibiotics further on the base of the culture Dictation was produced using [employer] dictation software. please excuse any grammatical, word or spelling errors. Time with Patient: Less than 30
--- NOTE | 2022-12-21 17:03 | P.PN ---
Subjective Progress Note Date: 12/21/22 Principal diagnosis: Complicated UTI/fever Patient is a 82-year-old male with a past medical history significant for kidney stone hypertension hyperlipidemia , presented to the outside facility with the flank pain he did have a fever and concerning for infected left ure teral stone and pyelonephritis, transferred to this facility to be evaluated by urology. Patient is status post left sided ureteroscopy with holmium laser and stent insertion on 12/20/2022 on today's evaluation that is 12/21/2022, the patient did have resolution of his fever and the patient is afebrile this morning, patient has been complaining of some cough unable to cough up any sputum patient is not requiring any supplemental oxygen did have some nausea but no vomiting and no diarrhea Patient did have a white count up to 23,000 today, creatinine slightly up to 2.14 today, patient did have a chest x-ray low lung volumes with generalized hazy appearance atelectasis versus pulmonary edema Objective - Vital Signs Vital signs: Vital Signs Temp 97.5 F L 12/21/22 15:17 Pulse 63 12/21/22 15:17 Resp 17 12/21/22 15:17 BP 131/70 12/21/22 15:17 Pulse Ox 94 L 12/21/22 15:17 FiO2 Intake & Output 12/20/22 12/21/22 12/21/22 18:59 06:59 18:59 Intake Total 1440 1480 Output Total 310 450 200 Balance 1130 -450 1280 Intake: IV 700 Oral 740 1480 Output: Urine 300 450 200 Estimated Blood Loss 10 Other: Voiding Method Urinal Urinal Urinal # Voids 1 2 # Bowel Movements 1 - Exam GENERAL DESCRIPTION: An elderly male lying in bed in no distress RESPIRATORY SYSTEM: Unlabored breathing , decreased breath sounds at bases HEART: S1 S2 regular rate and rhythm , ABDOMEN: Soft , no tenderness EXTREMITIES: No edema feet - Labs CBC & Chem 7: 12/21/22 10:31 12/21/22 10:31 Labs: Abnormal Lab Results - Last 24 Hours (Table) 12/20/22 12/21/22 12/21/22 Range/Units 19:56 10:31 10:31 WBC 23.9 H (3.8-10.6) k/uL RBC 3.94 L (4.30-5.90) m/uL Hgb 12.7 L (13.0-17.5) gm/dL Hct 37.4 L (39.0-53.0) % Plt Count 137 L (150-450) k/uL Neutrophils # 20.9 H (1.3-7.7) k/uL Monocytes # 1.2 H (0-1.0) k/uL Sodium 132 L (137-145) mmol/L BUN 27 H (9-20) mg/dL Creatinine 2.14 H (0.66-1.25) mg/dL Glucose 105 H (74-99) mg/dL Calcium 7.8 L (8.4-10.2) mg/dL Total Protein 5.3 L (6.3-8.2) g/dL Albumin 2.7 L (3.5-5.0) g/dL Urine Protein 2+ H (Negative) Urine Blood Large H (Negative) Ur Leukocyte Esterase Large H (Negative) Urine RBC >182 H (0-5) /hpf Urine WBC >182 H (0-5) /hpf Urine WBC Clumps Many H (None) /hpf Urine Bacteria Rare H (None) /hpf Urine Mucus Rare H (None) /hpf Assessment and Plan (1) Complicated UTI (urinary tract infection) Current Visit: Yes Status: Acute Code(s): N39.0 - URINARY TRACT INFECTION, SITE NOT SPECIFIED SNOMED Code(s): 05905046 (2) SIRS (systemic inflammatory response syndrome) Current Visit: Yes Status: Acute Code(s): R65.10 - SIRS OF NON-INFECTIOUS ORIGIN W/O ACUTE ORGAN DYSFUNCTION SNOMED Code(s): 745096965 Plan: 1patient presented hospital with left flank pain and did have a fever in this patient with recent diagnosis of left ureteral stone and hydronephrosis and likely secondary left-sided pyelonephritis patient did have some left-sided effusion however did not have significant respiratory symptoms to be suggestive of pneumonia. 2patient with renal insufficiency high risk of nephrotoxicity from vancomycin 3-Patient has been evaluated by urology and the patient is status post left sided ureteroscopy with holmium laser and stent insertion 4Patient did have a new fever, also have elevated white count and significantly positive UA. We'll discontinue Rocephin and start the patient cefepime while waiting for the cultures to finalize Dictation was produced using [employer] dictation software. please excuse any grammatical, word or spelling errors. Time with Patient: Less than 30
[2022-12-21] MEDS: DOXAZOSIN 4 MG TAB PO SCH (20:38)
[2022-12-21] MEDS: HYDROcodone/APAP 5-325MG 1 EACH TAB PO PRN (20:38)
[2022-12-22] MEDS ORDERED: CEFEPIME 1 GM in SODIUM CHLORIDE 0.9% 50 ML IVPB SCH ×2
[2022-12-22 06:25] LABS: Basophils # (A) 0.1 k/uL (0-0.2); Basophils % (A) 0 %; Eosinophils # (A) 0.4 k/uL (0-0.7); Eosinophils % (A) 2 %; HCT 38.2 % (39.0-53.0); HGB 12.8 gm/dL (13.0-17.5); Lymphocytes # (A) 1.5 k/uL (1.0-4.8); Lymphocytes % (A) 7 %; MCHC 33.4 g/dL (31.0-37.0); MCV 93.1 fL (80.0-100.0); Mean Platelet Volume 8.3; Monocytes # (A) 0.8 k/uL (0-1.0); Monocytes % (A) 4 %; Neutrophils # (A) 16.9 k/uL (1.3-7.7); Neutrophils % (A) 85 %; Platelet Count 158 k/uL (150-450); RBC 4.11 m/uL (4.30-5.90); RDW 13.2 % (11.5-15.5); WBC 19.9 k/uL (3.8-10.6)
[2022-12-22 06:42] LABS: ALT 16 U/L (4-49); AST 21 U/L (17-59); African American GFR (CKD) 44 (>60 ml/min/1.73 sqM); Albumin 2.7 g/dL (3.5-5.0); Alkaline Phosphatase 98 U/L (38-126); Anion Gap 7 mmol/L; Blood Urea Nitrogen 25 mg/dL (9-20); Calcium 8.4 mg/dL (8.4-10.2); Carbon Dioxide 22 mmol/L (22-30); Chloride 105 mmol/L (98-107); Glucose 94 mg/dL (74-99); Non-African American GFR(CKD) 38 (>60 ml/min/1.73 sqM); Potassium 4.2 mmol/L (3.5-5.1); Sodium 134 mmol/L (137-145); Total Bilirubin 0.7 mg/dL (0.2-1.3); Total Protein 5.5 g/dL (6.3-8.2)
[2022-12-22] MEDS: FINASTERIDE 5 MG TAB PO SCH (08:30)
[2022-12-22] MEDS: ASPIRIN 81 MG PO SCH (08:30)
[2022-12-22] MEDS: ATORVASTATIN 40 MG TAB PO SCH (08:30)
--- NOTE | 2022-12-22 08:32 | P.PN ---
Subjective Postoperative day #2 status post left sided ureteroscopy with holmium laser and stent insertion. Denies any flank pain and gross hematuria or dysuria. WBC down 19.9 from 23, patient afebrile last 24 hours Objective - Vital Signs Vital signs: Vital Signs Temp 97.8 F 12/21/22 20:00 Pulse 78 12/22/22 04:00 Resp 18 12/22/22 04:00 BP 143/71 12/22/22 04:00 Pulse Ox 95 12/22/22 07:44 FiO2 Intake & Output 12/21/22 12/22/22 12/22/22 18:59 06:59 18:59 Intake Total 1720 480 Output Total 200 1800 Balance 1520 -1320 Weight 102.9 kg Intake: Oral 1720 480 Output: Urine 200 1800 Other: Voiding Method Urinal Urinal # Voids 2 3 # Bowel Movements 1 1 - Constitutional General appearance: Present: no acute distress - Labs CBC & Chem 7: 12/22/22 05:51 12/22/22 05:51 Labs: Abnormal Lab Results - Last 24 Hours (Table) 12/21/22 12/21/22 12/22/22 Range/Units 10:31 10:31 05:51 WBC 23.9 H 19.9 H (3.8-10.6) k/uL RBC 3.94 L 4.11 L (4.30-5.90) m/uL Hgb 12.7 L 12.8 L (13.0-17.5) gm/dL Hct 37.4 L 38.2 L (39.0-53.0) % Plt Count 137 L (150-450) k/uL Neutrophils # 20.9 H 16.9 H (1.3-7.7) k/uL Monocytes # 1.2 H (0-1.0) k/uL Sodium 132 L (137-145) mmol/L BUN 27 H (9-20) mg/dL Creatinine 2.14 H (0.66-1.25) mg/dL Glucose 105 H (74-99) mg/dL Calcium 7.8 L (8.4-10.2) mg/dL Total Protein 5.3 L (6.3-8.2) g/dL Albumin 2.7 L (3.5-5.0) g/dL 12/22/22 Range/Units 05:51 WBC (3.8-10.6) k/uL RBC (4.30-5.90) m/uL Hgb (13.0-17.5) gm/dL Hct (39.0-53.0) % Plt Count (150-450) k/uL Neutrophils # (1.3-7.7) k/uL Monocytes # (0-1.0) k/uL Sodium 134 L (137-145) mmol/L BUN 25 H (9-20) mg/dL Creatinine 1.65 H (0.66-1.25) mg/dL Glucose (74-99) mg/dL Calcium (8.4-10.2) mg/dL Total Protein 5.5 L (6.3-8.2) g/dL Albumin 2.7 L (3.5-5.0) g/dL Microbiology - Last 24 Hours (Table) 12/20/22 18:18 Blood Culture - Preliminary Blood 12/16/22 16:52 Blood Culture - Final Blood Assessment and Plan Assessment: 82-year-old male with history of left-sided distal ureteral stone, underwent left-sided ureteroscopy with holmium laser and stent insertion by Dr Bourne yesterday -Okay for discharge from your standpoint, advised to follow up with Dr. Bourne for stent removal and 1-2 weeks
--- NOTE | 2022-12-22 11:57 | P.PN ---
Subjective Progress Note Date: 12/22/22 82-year-old male who is transferred via EMS from [facility], past medical history significant for kidney stone hypertension hyperlipidemia apparently was recently evaluated and monitored hospital the patient has been diagnosed with a kidney stone apparently the patient did have a 8 mm left medial ureteral stone and the patient also suspected with a UTI patient was subsequent discharged home however the patient presented to hospital with worsening pain to the left flank he describes the pain to be sharp 7- 8 out of 10 no radiation some nausea but no vomiting no diarrhea patient on presentation to the hospital did have a fever of 101.7 degrees forearm height patient was not tachycardic hypotensive or hypoxic patient did have a normal white count with leukopenia BUN/creatinine has been mildly elevated troponins were elevated urine was negative COVID testing was negative patient did have a chest x-ray hypoventilatory changes small to moderate left effusion patient was started on vancomycin he did receive a dose of Zosyn 12/19/2022 the patient is seen and evaluated in room at bedside; remains to be afebrile and the patient is breathing comfortably on room air, the patient denies having any chest pain shortness with a cough no abdominal pain or diarrhea. Patient did have a white count of 7.4, the patient creatinine is down to 1.99, pro calcitonin is 3.01, blood cultures currently pending patient presented hospital with left flank pain and did have a fever in this patient with recent diagnosis of left ureteral stone and hydronephrosis and likely secondary left-sided pyelonephritis patient did have some left-sided effusion however did not have significant respiratory symptoms to be suggestive of pneumonia. patient with renal insufficiency high risk of nephrotoxicity from vancomycin -Patient has been evaluated by urology and apparently the patient has been cleared by cardiology for cystoscopy and possible ureteral stent placement , scheduled for tomorrow we will repeat a UA afterwards Patient to continue Rocephin 2 g daily and monitor clinical course closely - Patient has been evaluated by cardiology for elevated troponin; initially treated with IV heparin which has been discontinued by cardiology deeming elevated troponin related to acute renal failure 12/20. Patient seen and examined. Patient complaining of difficulty taking deep breaths. Patient had cystoscopy done 12/21. Patient seen and examined .status post left sided ureteroscopy with holmium laser and stent insertion. States he feels better compared to yesterday. /. Patient seen and examined. Patient states he feels much better. Continues to be afebrile. WBC this morning is 19.9. REVIEW OF SYSTEMS: CONSTITUTIONAL: No fever, no malaise,. CARDIOVASCULAR: No chest pain, no palpitations, no syncope. PULMONARY: As mentioned above GASTROINTESTINAL: No diarrhea, no nausea, no vomiting, no abdominal pain. NEUROLOGICAL: No headaches, no weakness, PHYSICAL EXAMINATION: GENERAL: The patient is alert and oriented x3, not in any acute distress. Well developed, well nourished. HEENT: Pupils are round and equally reacting to light. EOMI. No scleral icterus. No conjunctival pallor. Normocephalic, atraumatic. No pharyngeal erythema. No th yromegaly. CARDIOVASCULAR: S1 and S2 present. No murmurs, rubs, or gallops. PULMONARY: Chest is clear to auscultation, no wheezing or crackles. ABDOMEN: Soft, nontender, nondistended, normoactive bowel sounds. No palpable organomegaly. MUSCULOSKELETAL: No joint swelling or deformity. EXTREMITIES: No cyanosis, clubbing, or pedal edema. NEUROLOGICAL: Gross neurological examination did not reveal any focal deficits. SKIN: No rashes. Assessment and plan sepsis; Left-sided pyelonephritis; Left ureteral stone/hydronephrosis; Monitor vital signs Monitor CBC Follow-up on urine cultures status post left sided ureteroscopy with holmium laser and stent insertion Continue IV cefepime, ID following Left-sided pleural effusion; encourage use of I-S, pulmonology following Worsening acute renal injury/likely obstructive uropathy; monitor strict KIMBERLEY's and daily weights; monitor renal function and electrolytes; avoid nephrotoxins Elevated troponin; EKG does not reveal any changes; cardiology cleared the patient for cystoscopy Hyponatremia; monitor BMP Hypertension; continue Cardura 4 mg daily at bedtime Hyperlipidemia; Lipitor 40 mg daily; Zetia 10 mg daily Asthma; not in exacerbation; Ventolin inhaler 2 puffs 4 times a day when necessary BPH; Proscar 5 mg daily Labs and medication were reviewed.. Continue same treatment. Continue with symptomatic treatment. Resume home medication. Monitor labs and vitals. DVT and GI prophylaxis. Further recommendations as per clinical course of the patient Dictation was produced using scanR dictation software. please excuse any grammatical, word or spelling errors. Objective - Vital Signs Vital signs: Vital Signs Temp 97.8 F 12/21/22 20:00 Pulse 76 12/22/22 08:00 Resp 16 12/22/22 08:00 BP 151/86 12/22/22 08:00 Pulse Ox 95 12/22/22 08:00 FiO2 Intake & Output 12/21/22 12/22/22 12/22/22 18:59 06:59 18:59 Intake Total 1720 480 300 Output Total 200 1800 Balance 1520 -1320 300 Weight 102.9 kg Intake: Oral 1720 480 300 Output: Urine 200 1800 Other: Voiding Method Urinal Urinal Urinal # Voids 2 3 # Bowel Movements 1 1 - Labs CBC & Chem 7: 12/22/22 05:51 12/22/22 05:51 Labs: Abnormal Lab Results - Last 24 Hours (Table) 12/22/22 12/22/22 Range/Units 05:51 05:51 WBC 19.9 H (3.8-10.6) k/uL RBC 4.11 L (4.30-5.90) m/uL Hgb 12.8 L (13.0-17.5) gm/dL Hct 38.2 L (39.0-53.0) % Neutrophils # 16.9 H (1.3-7.7) k/uL Sodium 134 L (137-145) mmol/L BUN 25 H (9-20) mg/dL Creatinine 1.65 H (0.66-1.25) mg/dL Total Protein 5.5 L (6.3-8.2) g/dL Albumin 2.7 L (3.5-5.0) g/dL Microbiology - Last 24 Hours (Table) 12/20/22 19:56 Urine Culture - Final Urine,Voided 12/20/22 18:18 Blood Culture - Preliminary Blood 12/16/22 16:52 Blood Culture - Final Blood
[2022-12-22] MEDS ORDERED: CEFEPIME 2 GM in SODIUM CHLORIDE 0.9% 100 ML IVPB SCH (12:00)
[2022-12-22] MEDS: CEFEPIME 2 GM in SODIUM CHLORIDE 0.9% 100 ML IVPB SCH ×2 (12:23→23:48)
[2022-12-22] MEDS: DOXAZOSIN 4 MG TAB PO SCH (20:22)
[2022-12-23] MEDS: SODIUM CHLORIDE 0.9% 1,000 ML IV SCH (00:37)
[2022-12-23 07:52] LABS: Basophils % (A) 0 %; Eosinophils # (A) 0.3 k/uL (0-0.7); Eosinophils % (A) 3 %; HCT 36.9 % (39.0-53.0); HGB 12.9 gm/dL (13.0-17.5); Lymphocytes # (A) 1.3 k/uL (1.0-4.8); Lymphocytes % (A) 12 %; MCH 32.5 pg (25.0-35.0); MCHC 35.1 g/dL (31.0-37.0); MCV 92.6 fL (80.0-100.0); Monocytes # (A) 0.4 k/uL (0-1.0); Monocytes % (A) 4 %; Neutrophils # (A) 8.4 k/uL (1.3-7.7); Neutrophils % (A) 79 %; Platelet Count 172 k/uL (150-450); RBC 3.98 m/uL (4.30-5.90); RDW 13.4 % (11.5-15.5); WBC 10.7 k/uL (3.8-10.6)
[2022-12-23 07:56] LABS: ALT 15 U/L (4-49); AST 17 U/L (17-59); African American GFR (CKD) 56 (>60 ml/min/1.73 sqM); Albumin 2.5 g/dL (3.5-5.0); Alkaline Phosphatase 72 U/L (38-126); Anion Gap 4 mmol/L; Blood Urea Nitrogen 20 mg/dL (9-20); Calcium 8.3 mg/dL (8.4-10.2); Carbon Dioxide 23 mmol/L (22-30); Chloride 107 mmol/L (98-107); Glucose 88 mg/dL (74-99); Non-African American GFR(CKD) 48 (>60 ml/min/1.73 sqM); Potassium 4.3 mmol/L (3.5-5.1); Sodium 134 mmol/L (137-145); Total Bilirubin 0.7 mg/dL (0.2-1.3)
[2022-12-23] MEDS: ATORVASTATIN 40 MG TAB PO SCH (08:03)
[2022-12-23] MEDS: FINASTERIDE 5 MG TAB PO SCH (08:03)
[2022-12-23] MEDS: ASPIRIN 81 MG PO SCH (08:03)
[2022-12-23 08:48] VITALS: BP 152/84; PULSE 73; RESP 19; TEMP 97.6
[2022-12-23 10:06] VITALS: BMI 26.9
--- NOTE | 2022-12-23 12:29 | P.DS ---
Providers Date of admission: 12/16/22 18:50 Expected date of discharge: 12/23/22 Attending physician: Ariel Moran Consults: 12/16/22 18:18 Consult Physician Routine Consulting Provider: Maria Antonia Castaneda Consult Reason/Comments: sirs Do you want consulting provider notified?: Yes 12/17/22 12:04 Consult Physician Routine Consulting Provider: Cosmo Bourne Consult Reason/Comments: Ureteral calculus with hydronephrosis/ worsening renal failure Do you want consulting provider notified?: Yes Primary care physician: Stated None Hospital Course: Discharge diagnoses; sepsis; Left-sided pyelonephritis; Left ureteral stone/hydronephrosis; status post left sided ureteroscopy with holmium laser and stent insertion Being discharged on oral Ceftin for 10 days. Outpatient follow-up with ID and urology Left-sided pleural effusion; encourage use of I-S, pulmonology following Worsening acute renal injury/likely obstructive uropathy; resolved Elevated troponin; EKG does not reveal any changes; cardiology cleared the patient for cystoscopy Hyponatremia; monitor BMP Hypertension; continue Cardura 4 mg daily at bedtime Hyperlipidemia; Lipitor 40 mg daily; Zetia 10 mg daily Asthma; not in exacerbation; Ventolin inhaler 2 puffs 4 times a day when necessary BPH; Proscar 5 mg daily Hospital course; 82-year-old male who is transferred via EMS from [facility], past medical history significant for kidney stone hypertension hyperlipidemia apparently was recently evaluated and monitored hospital the patient has been diagnosed with a kidney stone apparently the patient did have a 8 mm left medial ureteral stone and the patient also suspected with a UTI patient was subsequent discharged home however the patient presented to hospital with worsening pain to the left flank he describes the pain to be sharp 7- 8 out of 10 no radiation some nausea but no vomiting no diarrhea patient on presentation to the hospital did have a fever of 101.7 degrees forearm height patient was not tachycardic hypotensive or hypoxic patient did have a normal white count with leukopenia BUN/creatinine has been mildly elevated troponins were elevated urine was negative COVID testing was negative patient did have a chest x-ray hypoventilatory changes small to modera te left effusion patient was started on vancomycin he did receive a dose of Zosyn 12/19/2022 the patient is seen and evaluated in room at bedside; remains to be afebrile and the patient is breathing comfortably on room air, the patient denies having any chest pain shortness with a cough no abdominal pain or diarrhea. Patient did have a white count of 7.4, the patient creatinine is down to 1.99, pro calcitonin is 3.01, blood cultures currently pending patient presented hospital with left flank pain and did have a fever in this patient with recent diagnosis of left ureteral stone and hydronephrosis and likely secondary left-sided pyelonephritis patient did have some left-sided effusion however did not have significant respiratory symptoms to be suggestive of pneumonia. patient with renal insufficiency high risk of nephrotoxicity from vancomycin -Patient has been evaluated by urology and apparently the patient has been cleared by cardiology for cystoscopy and possible ureteral stent placement , scheduled for tomorrow we will repeat a UA afterwards Patient to continue Rocephin 2 g daily and monitor clinical course closely - Patient has been evaluated by cardiology for elevated troponin; initially treated with IV heparin which has been discontinued by cardiology deeming elevated troponin related to acute renal failure 12/20. Patient seen and examined. Patient complaining of difficulty taking deep breaths. Patient had cystoscopy done 12/21. Patient seen and examined .status post left sided ureteroscopy with holmium laser and stent insertion. States he feels better compared to yesterday. /. Patient seen and examined. Patient states he feels much better. Continues to be afebrile. WBC this morning is 19.9. 12/23. Being discharged on oral Ceftin for 10 days. Outpatient follow-up with ID and urology PHYSICAL EXAMINATION: GENERAL: The patient is alert and oriented x3, not in any acute distress. Well developed, well nourished. HEENT: Pupils are round and equally reacting to light. EOMI. No scleral icterus. No conjunctival pallor. Normocephalic, atraumatic. No pharyngeal erythema. No thyromegaly. CARDIOVASCULAR: S1 and S2 present. No murmurs, rubs, or gallops. PULMONARY: Chest is clear to auscultation, no wheezing or crackles. ABDOMEN: Soft, nontender, nondistended, normoactive bowel sounds. No palpable organomegaly. MUSCULOSKELETAL: No joint swelling or deformity. EXTREMITIES: No cyanosis, clubbing, or pedal edema. NEUROLOGICAL: Gross neurological examination did not reveal any focal deficits. SKIN: No rashes. Dictation was produced using dragon dictation software. please excuse any grammatical, word or spelling errors. Patient Condition at Discharge: Good Plan - Discharge Summary Discharge Rx Participant: No New Discharge Prescriptions: New cefUROXime axetiL [Cefuroxime] 500 mg PO BID 10 Days #20 tab Aspirin 81 mg PO DAILY #30 tab Continue Losartan/Hydrochlorothiazide [Losartan-Hctz 100-25 mg Tab] 1 tab PO DAILY Atorvastatin [Lipitor] 40 mg PO DAILY Naproxen [Naprosyn] 500 mg PO BID PRN PRN Reason: Pain Doxazosin [Cardura] 4 mg PO HS Finasteride [Proscar] 5 mg PO DAILY Ezetimibe [Zetia] 10 mg PO DAILY Diclofenac Sodium [Voltaren] 75 mg PO BID PRN PRN Reason: Pain Albuterol Inhaler [Ventolin Hfa Inhaler] 2 puff INHALATION RT-Q4H PRN PRN Reason: Shortness Of Breath HYDROcodone/APAP 5-325MG [[place] 5-325] 1 tab PO QID PRN PRN Reason: Pain Discharge Medication List Albuterol Inhaler [Ventolin Hfa Inhaler] 2 puff INHALATION RT-Q4H PRN 12/16/22 [History] Atorvastatin [Lipitor] 40 mg PO DAILY 12/16/22 [History] Diclofenac Sodium [Voltaren] 75 mg PO BID PRN 12/16/22 [History] Doxazosin [Cardura] 4 mg PO HS 12/16/22 [History] Ezetimibe [Zetia] 10 mg PO DAILY 12/16/22 [History] Finasteride [Proscar] 5 mg PO DAILY 12/16/22 [History] HYDROcodone/APAP 5-325MG [[place] 5-325] 1 tab PO QID PRN 12/16/22 [History] Losartan/Hydrochlorothiazide [Losartan-Hctz 100-25 mg Tab] 1 tab PO DAILY 12/16/22 [History] Naproxen [Naprosyn] 500 mg PO BID PRN 12/16/22 [History] Aspirin 81 mg PO DAILY #30 tab 12/23/22 [Rx] cefUROXime axetiL [Cefuroxime] 500 mg PO BID 10 Days #20 tab 12/23/22 [Rx] Follow up Appointment(s)/Referral(s): Cosmo Bourne MD [STAFF PHYSICIAN] - 2 Weeks None,Stated [Primary Care Provider] - 1-2 days Duglas Baeza MD [STAFF PHYSICIAN] - 2 Weeks Maria Atnonia Castaneda MD [STAFF PHYSICIAN] - 1 Week Patient Instructions/Handouts: Kidney Stones (DC), Sepsis (DC) Activity/Diet/Wound Care/Special Instructions: Reassure patient that hematuria is expected as long as he has a ureteral stent in place. Schedule follow-up appointment with Dr. Bourne in 2 weeks for office cystoscopy with stent removal. Discharge/Stand Alone Forms: Who Do I Call?, Personal [place], Area PCPs Discharge Disposition: HOME SELF-CARE
[2022-12-23] MEDS: CEFEPIME 2 GM in SODIUM CHLORIDE 0.9% 100 ML IVPB SCH (14:18)
--- NOTE | 2022-12-23 16:26 | P.OP ---
Date of Procedure: 12/20/22 Preoperative Diagnosis: Left ureteral calculus Postoperative Diagnosis: Same Procedure(s) Performed: Cystoscopy, left retrograde pyelogram, left ureteroscopy with Holmium laser lithotripsy and stone basketing, left ureteral stent insertion Anesthesia: NARESH Surgeon: Cosmo Bourne Estimated Blood Loss (ml): 10 IV fluids (ml): 400 Pathology: other (Calculus fragments, sent for chemical analysis) Condition: stable Disposition: PACU Indications for Procedure: The patient recently presented to [facility] with left flank pain. CT scan showed an 8 mm left mid-ureteral calculus. He was transferred to [facility] for further management. A urine culture obtained 12/11/2022 showed a Klebsiella oxytoca UTI. He has been treated with antibiotics and remains afebrile. Operative Findings: Left distal ureteral calculus, fragmented and removed completely. Description of Procedure: The patient was taken to the operating room and placed in the dorsolithotomy position, with legs supported in Cecilio stirrups. The external genitalia was prepped and draped sterilely. The 30 lens was used to introduce the 21-Slovak Emraz cystoscopic sheath through the urethra and into the bladder under direct vision. The prostatic urethra showed evidence of mild lateral lobe enlargement and a high median bar. The bladder was examined in its entirety. Both ureteral orifices were normal anatomic location and configuration. No tumors or foreign bodies were seen. The Meraz semirigid ureteroscope was advanced into the bladder, and the left ureteral orifice was cannulated. The ureteroscope was slowly advanced under direct vision. The distal ureteral calculus was identified. The 365 micron Holmium laser probe was passed through the ureteroscope, and lithotripsy was performed. After fragmenting the calculus, stone basketing was performed using the 0 tip nitinol basket. All calculus fragments were removed, and there was no evidence of ureteral trauma. A Glidewire was passed through the ureteroscope and up to the left renal pelvis. The ureteroscope was removed, and the Glidewire was backloaded into the cystoscope, which was passed into the bladder. A 28 cm, 6-Slovak double-J ureteral stent was placed over the wire. Proper stent positioning was verified fluoroscopically and endoscopically. The bladder was emptied and the cystoscope removed. The patient tolerated the procedure well and was taken to the recovery room in stable condition. NeverfailS Report: Procedure Acuity: Urgent Stone Size and Location: 8 mm, left distal ureter Ureteral Dilation: No Ureteral Access Sheath Used: No Stone Sent for Analysis: Yes All Stones/Fragments Were Removed with a Basket: Yes Complications: No Preoperative Antibiotics Given: Yes Stent Placed: Yes If Stent Placed, Was String Left Attached: No If Stent Placed, When is it to be Removed: 2 weeks Discharge Medications: Cefuroxime
== END 2022-12-23 16:07 | disposition home or self-care (01) | DRG 854 ==
LOC: EC 16:29 → 3SCARD 18:50 → 4SSUR 12-23 00:53
PROVIDERS: ADMIT Hospitalist; ATTEND Hospitalist
PROC: 0TC78ZZ Extirpation of Matter from Left Ureter, Via Natural or Artificial Opening Endoscopic (ICD-10-PCS; 2022-12-20)
PROC: 0T778DZ Dilation of Left Ureter with Intraluminal Device, Via Natural or Artificial Opening Endoscopic (ICD-10-PCS; principal; 2022-12-20 12:50)
PROC: BT1F1ZZ Fluoroscopy of Left Kidney, Ureter and Bladder using Low Osmolar Contrast (ICD-10-PCS; 2022-12-20 12:50)
PROC: 0TC78ZZ Extirpation of Matter from Left Ureter, Via Natural or Artificial Opening Endoscopic (ICD-10-PCS; 2022-12-20 12:50)
DX: A41.9 Sepsis, unspecified organism (principal); E87.1 Hypo-osmolality and hyponatremia; N13.6 Pyonephrosis; I27.20 Pulmonary hypertension, unspecified; F03.90 Unspecified dementia, unspecified severity, without behavioral disturbance, psychotic disturbance, mood disturbance, and anxiety; I65.29 Occlusion and stenosis of unspecified carotid artery; I08.3 Combined rheumatic disorders of mitral, aortic and tricuspid valves; I10 Essential (primary) hypertension; B96.89 Other specified bacterial agents as the cause of diseases classified elsewhere; I25.10 Atherosclerotic heart disease of native coronary artery without angina pectoris; Z53.8 Procedure and treatment not carried out for other reasons; E78.5 Hyperlipidemia, unspecified; I44.0 Atrioventricular block, first degree; D72.819 Decreased white blood cell count, unspecified; N40.0 Benign prostatic hyperplasia without lower urinary tract symptoms; R77.8 Other specified abnormalities of plasma proteins; Z20.822 Contact with and (suspected) exposure to COVID-19; Z28.311 Partially vaccinated for COVID-19; Z87.891 Personal history of nicotine dependence; Z87.442 Personal history of urinary calculi; Z98.61 Coronary angioplasty status; I25.2 Old myocardial infarction; Z86.73 Personal history of transient ischemic attack (TIA), and cerebral infarction without residual deficits; Z79.899 Other long term (current) drug therapy
CPT/HCPCS: 36415; 71045; 71046; 74018; 74420; 80048; 80053; 81001; 81003; 82365; 82565; 83605; 83880; 84145; 84484; 85025; 85610; 85730; 87040; 87086; 87635; 93005; 93306; 94760; 96361; 96365; 96366; 96368; 99285